=== PATIENT | female | born 1940 | race Caucasian/White ===

== ENCOUNTER 2020-03-02 17:44 | Inpatient (IN) | payer OTHER ==
[2020-03-02] MEDS ORDERED: NA CHLORIDE 0.9% 1,000 ML ONE ×2 (18:45→23:33)
[2020-03-02 18:48] LABS: Absolute Lymphocytes (CBC) 55.3 K/uL (0.7-4.9); Hematocrit 34.7 % (36.0-45.0); Lymphocytes % 89.1 % (15.3-44.8); MPV 7.2 fL (7.6-11.3); RBC Red Blood Cell Count 3.67 M/uL (3.86-4.86)
[2020-03-02 19:01] LABS: Potassium 3.9 mmol/L (3.5-5.1)
[2020-03-02 19:37] LABS: Blood Morphology Comment NOT SEEN (NOT SEEN); Platelet Estimate ADEQ
--- NOTE | 2020-03-02 20:19 | RAD REPORT ---
EXAM DESCRIPTION: RAD - Chest Single View - 03/02/2020 7:59 pm CLINICAL HISTORY: leukocytosis COMPARISON: None TECHNIQUE: AP portable chest image was obtained 03/02/2020 7:59 pm . FINDINGS: No focal mass or consolidation identified. Interstitial pattern is prominent which is most likely chronic fibrotic change. This could mask minimal infiltrates. Failure and volume overload are not suspected. No hilar mass or lymphadenopathy. Heart and vasculature are normal. No measurable ple ural effusion and no pneumothorax. No acute bony abnormality seen. No acute aortic findings suspected . IMPRESSION: Prominent interstitial pattern believed to be chronic fibrotic change.
--- NOTE | 2020-03-02 21:15 | P.HP ---
Certification for Inpatient Patient admitted to: Inpatient With expected LOS: >2 Midnights Patient will require the following post-hospital care: None Practitioner: I am a practitioner with admitting privileges, knowledge of patient current condition, hospital course, and medical plan of care. Services: Services provided to patient in accordance with Admission requirements found in Title 42 Section 412.3 of the Code of Federal Regulations <OzEthan - Last Filed: 03/02/20 21:07> Patient History Date of Service: 03/02/20 Primary Care Provider: Dr. Mckay, oncology Dr. Cutler, nephrology- Dr. Larson Reason for admission: Hyponatremia History of Present Illness: 79-year-old female with history of CLL presents emergency department for hypernatremia. Patient had outpatient labs performed with her oncologist today that revealed a sodium of 116 and she is referred to the emergency department for further evaluation and management. Patient had labs repeated in the ED, this revealed sodium 116, potassium 3.9, chloride 79 %period% creatinine 1.98, GFR 24, BUN 29 which is not significantly different from her baseline. Patient also noted to have elevated white blood cell count 62.0 with 89.1% lymphocytes. Hemoglobin 11.6, hematocrit 34.7. Patient is not receiving any treatment currently for her CLL, patient is without any lymphadenopathy or significant anemia/thrombocytopenia. Case was discussed with nephrology while patient was in the emergency department, recommended normal saline 250 cc an hr with BMP every 4 hr. Case was discussed with hospitalist attending electronic console display operator. Patient with some mild altered mental status, oriented x2 to person and place but mainly the year as 2009. - Past Medical/Surgical History -: CLL -: Tubal ligation -: Tonsillectomy Psychosocial/ Personal History: Patient lives at home with her son - Social History Smoking Status: Former smoker Alcohol use: No CD- Drugs: No Caffeine use: Yes Place of Residence: Home <Ethan Clinton - Last Filed: 03/02/20 21:07> Date of Service: 03/03/20 <rowena abdi - Last Filed: 03/03/20 11:38> Review of Systems Unremarkable <Ethan Clinton - Last Filed: 03/02/20 21:07> Physical Examination - Physical Exam General: Alert, In no apparent distress, Oriented x2 HEENT: Atraumatic, Normocephalic, Other (Mucous membranes dry) Neck: Supple Respiratory: Clear to auscultation bilaterally, Normal air movement Cardiovascular: No edema, Normal S1 S2 Capillary refill: <2 Seconds Gastrointestinal: Normal bowel sounds, No tenderness Musculoskeletal: No contractures, No erythema, No tenderness Integumentary: No tenderness/swelling, No erythema Neurological: Normal speech, Normal strength at 5/5 x4 extr, Normal tone, Sensation intact - Studies Laboratory Data (last 24 hrs) 03/02/20 18:25: Sodium 116 L*, Potassium 3.9, BUN 29 H, Creatinine 1.98 H, Glucose 139 H 03/02/20 18:25: WBC 62.0 H*, Hgb 11.6 L, Hct 34.7 L, Plt Count 198 <Ethan Clinton - Last Filed: 03/02/20 21:07> - Studies Laboratory Data (last 24 hrs) 03/02/20 18:25: Sodium 116 L*, Potassium 3.9, BUN 29 H, Creatinine 1.98 H, Glucose 139 H 03/02/20 18:25: WBC 62.0 H*, Hgb 11.6 L, Hct 34.7 L, Plt Count 198 <rowena abdi - Last Filed: 03/03/20 11:38> Assessment and Plan - Plan Assessment Severe hypovolemic hyponatremia CKD 4 CLL Plan Severe hypovolemic hyponatremia: Suspect hypovolemic hyponatremia, patient is on diuretic therapy and has poor p.o. intake. Case discussed with nephrology recommended normal saline at 250 cc/hour with q4h BMP. Case was discussed with hospitalist attending on-call. Monitor on telemetry. Plan of care discussed with son and patient, patient currently oriented x2 suggesting years 2009. Son states that he takes care of his mother at home but it is a lot for him as he is a personal fitness manager job as well. Consult placed for social group worker and physical therapy as patient has had multiple falls recently as well. Code status discussed with patient and son, patient prefers DNR. Son states that they were supposed to go to air deodorizer servicer tomorrow and have paper signed but he is agreeable with plan of care. CKD 4: Renal function appears to be close to baseline. Continue with nephrology recommendations including normal saline. CLL: 60,000 white count at this time. 90% lymphocytes. No signs of infection. Continue to monitor CBC and monitor for signs of infection. Discharge Plan: Home Plan to discharge in: 72 Hours - Advance Directives Does patient have a Living Will: No Does patient have a Durable POA for Healthcare: No - Code Status/Comfort Care Code Status Assessed: Yes (DNR) Critical Care: No Time Spent Managing Pts Care (In Minutes): 55 <Ethan Clinton - Last Filed: 03/02/20 21:07> Physician Review: Patient Assessed, Agree with Above Assessment and Plan Physician Review Additional Text: Hyponatremia-likely secondary to dehydration. CLL-asymptomatic. Plan: IV normal saline per nephrology recommendation Monitor BMP q.4 hr. Sodium level correction not to exceed 10 meq per day. <rowena abdi - Last Filed: 03/03/20 11:38>
[2020-03-02] MEDS ORDERED: ONDANSETRON 4 MG/2 ML VIAL IV PRN (22:40)
[2020-03-02] MEDS: NA CHLORIDE 0.9% 1,000 ML IV SCH (22:40)
[2020-03-02 23:00] LABS: Potassium 3.9 mmol/L (3.5-5.1)
[2020-03-02 23:37] LABS: Urine Bacteria LOADED /HPF (<20)
[2020-03-02 23:43] LABS: Urine RBC 20-50 /HPF (NONE SEEN)
[2020-03-03 00:56] VITALS: BMI 15.7
[2020-03-03] MEDS: MELATONIN 5 MG TABLET PO PRN (01:21)
[2020-03-03 03:54] LABS: Potassium 3.5 mmol/L (3.5-5.1)
[2020-03-03] MEDS ORDERED: CEFTRIAXONE 1 GM/NS 50 ML 1 GM/50 ML BAG IV SCH (03:55)
[2020-03-03 04:05] LABS: Absolute Lymphocytes (CBC) 42.1 K/uL (0.7-4.9); Hematocrit 29.9 % (36.0-45.0); Lymphocytes % 89.1 % (15.3-44.8); MPV 7.6 fL (7.6-11.3); RBC Red Blood Cell Count 3.17 M/uL (3.86-4.86)
[2020-03-03] MEDS ORDERED: POTASSIUM CL SA 10 MEQ TAB PO ONE (09:00)
[2020-03-03] MEDS: ENOXAPARIN 30 MG/0.3 ML SQ SCH (09:50)
[2020-03-03] MEDS: CEFTRIAXONE/SWI 1gm 1 GM/10 ML SYR IV SCH (09:50)
[2020-03-03 10:20] LABS: Urine Appearance CLOUDY; Urine Bilirubin NEGATIVE (NEG); Urine Blood 2+ (NEG); Urine Color YELLOW; Urine Glucose NEGATIVE (NEG); Urine Protein NEGATIVE (NEG)
[2020-03-03 11:11] LABS: Urine Microscopic Reflex ORDER UMIC
[2020-03-03 11:12] LABS: Urine Bacteria LOADED /HPF (<20)
--- NOTE | 2020-03-03 11:42 | P.PN ---
Subjective Date of Service: 03/03/20 Primary Care Provider: Dr. Mckay, oncology Dr. Cutler, nephrology- Dr. Larson Chief Complaint: Hyponatremia She has no complain. Family reports poor oral intake. Family also reports patient aspirate during meals. Physical Examination - Vital Signs Temperature: 98.1 F Blood Pressure: 115/56 Pulse: 67 Respirations: 16 Pulse Ox (%): 98 - Physical Exam General: In no apparent distress, Oriented x3, Cachectic HEENT: Mucous membr. moist/pink Neck: Supple, JVD not distended Respiratory: Clear to auscultation bilaterally, Normal air movement Cardiovascular: No edema, Regular rate/rhythm, Normal S1 S2 Gastrointestinal: Normal bowel sounds, Soft and benign, No tenderness Musculoskeletal: No swelling, No tenderness Integumentary: No rashes, No erythema Neurological: Normal speech, Normal strength at 5/5 x4 extr, Cranial nerves 3-12 intact - Studies Laboratory Data (last 24 hrs) 03/02/20 18:25: Sodium 116 L*, Potassium 3.9, BUN 29 H, Creatinine 1.98 H, Glucose 139 H 03/02/20 18:25: WBC 62.0 H*, Hgb 11.6 L, Hct 34.7 L, Plt Count 198 Assessment And Plan - Current Problems (Diagnosis) (1) Hyponatremia Current Visit: Yes Status: Acute (2) CLL (chronic lymphocytic leukemia) Current Visit: Yes Status: Acute (3) Oropharyngeal dysphagia Current Visit: Yes Status: Acute (4) Cachexia Current Visit: Yes Status: Acute (5) Anemia Current Visit: Yes Status: Acute (6) Thrombocytopenia Current Visit: Yes Status: Acute - Plan Continue IV normal saline at the current rate. Continue to monitor BMP q.6 hrs. Nephrology to follow. Speech therapy swallow evaluation. Frequent high-calorie diet recommended. Follow up with hematology as outpatient for CLL.
[2020-03-03 12:27] LABS: Potassium 4.1 mmol/L (3.5-5.1)
[2020-03-03] MEDS: NA CHLORIDE 0.9% 1,000 ML IV SCH ×2 (16:56→16:57)
[2020-03-03 18:59] LABS: Potassium 4.1 mmol/L (3.5-5.1)
--- NOTE | 2020-03-03 20:58 | P.CNS ---
Date of Consult: 03/03/20 Reason for Consult: EUGENIO/ Hyponatremia Requesting Physician: rowena abdi Primary Care Provider: Dr. Mckay, oncology Dr. Cutler, nephrology- Dr. Larson Chief Complaint: Hyponatremia History of Present Illness: 79 yo WF CLL presented to the ER from oncology with severe, persistent hyponatremia in the setting of HCTZ. The patient is not a good historian. 79-year-old female with history of CLL presents emergency department for hypernatremia. Patient had outpatient labs performed with her oncologist today that revealed a sodium of 116 and she is referred to the emergency department for further evaluation and management. Patient had labs repeated in the ED, this revealed sodium 116, potassium 3.9, chloride 79 %period% creatinine 1.98, GFR 24, BUN 29 which is not significantly different from her baseline. Patient also noted to have elevated white blood cell count 62.0 with 89.1% lymphocytes. Hemoglobin 11.6, hematocrit 34.7. Patient is not receiving any treatment currently for her CLL, patient is without any lymphadenopathy or significant anemia/thrombocytopenia. Case was discussed with nephrology while patient was in the emergency department, recommended normal saline 50 cc an hr with BMP every 4 hr. Case was discussed with hospitalist attending investment consultant. Patient with some mild altered mental status, oriented x2 to person and place but mainly the year as 2009. Allergies No Known Allergies Allergy (Unverified 03/02/20 22:40) Home medications list reviewed: Yes Home Medications: Triamterene/Hydrochlorothiazid [Triamterene-Hctz 37.5-25 mg Cp] 1 cap PO DAILY 03/03/20 - Past Medical/Surgical History -: CLL -: Tubal ligation -: Tonsillectomy Psychosocial/ Personal History: Patient lives at home with her son - Social History Alcohol use: No CD- Drugs: No Caffeine use: Yes Place of Residence: Home Review of Systems 10-point ROS is otherwise unremarkable General: Weakness, Malaise Physical Examination Temp Pulse Resp BP Pulse Ox 98.3 F 72 16 117/61 98 03/03/20 16:00 03/03/20 16:00 03/03/20 16:00 03/03/20 16:00 03/03/20 16:00 General: In no apparent distress, Cooperative HEENT: Atraumatic Neck: Supple Respiratory: Clear to auscultation bilaterally Cardiovascular: No edema, Regular rate/rhythm Gastrointestinal: Soft and benign, Non-distended Musculoskeletal: No clubbing, No contractures Integumentary: No rashes, No cyanosis Neurological: Normal speech Blood work reviewed in the chart. Imagings Data: EXAM DESCRIPTION: RAD - Chest Single View - 03/02/2020 7:59 pm CLINICAL HISTORY: leukocytosis COMPARISON: None TECHNIQUE: AP portable chest image was obtained 03/02/2020 7:59 pm . FINDINGS: No focal mass or consolidation identified. Interstitial pattern is prominent which is most likely chronic fibrotic change. This could mask minimal infiltrates. Failure and volume overload are not suspected. No hilar mass or lymphadenopathy. Heart and vasculature are normal. No measurable pleural e ffusion and no pneumothorax. No acute bony abnormality seen. No acute aortic findings suspected. IMPRESSION: Prominent interstitial pattern believed to be chronic fibrotic change. Conclusions/Impression: A/ EUGENIO due to hypovolemia Hyponatremia in the setting of HCTZ Hypokalemia Hypocalcemia CKD III Anemia in the setting of CLL Acute cystitis Dysphagia and Cachexia P/ Continue current POC and Medications. Gentle IVF. Replete potassium prn. Start Vitamin D. Continue abx. Follow up culture. No NSAIDs. AM labs. Daily weight. Thank you kindly for the consultation.
[2020-03-03] MEDS: DOCUSATE NA 100 MG CAP PO SCH (21:52)
[2020-03-03] MEDS: ENSURE ENLIVE 237 ML CAN PO SCH (21:53)
[2020-03-04 06:45] LABS: Magnesium 1.7 mg/dL (1.8-2.4); Phosphorus 2.4 mg/dL (2.5-4.9); Potassium 4.3 mmol/L (3.5-5.1); Uric Acid 4.7 mg/dL (2.6-6.0)
[2020-03-04 08:27] LABS: Absolute Lymphocytes (CBC) 37.8 K/uL (0.7-4.9); Basophils % 0.1 % (0-1.3); Hematocrit 31.8 % (36.0-45.0); Lymphocytes % 87.4 % (15.3-44.8); MPV 7.3 fL (7.6-11.3); RBC Red Blood Cell Count 3.35 M/uL (3.86-4.86)
[2020-03-04] MEDS: ENOXAPARIN 30 MG/0.3 ML SQ SCH (09:55)
[2020-03-04] MEDS: DOCUSATE NA 100 MG CAP PO SCH ×2 (09:55→20:15)
[2020-03-04] MEDS: VITAMIN D 5,000 UNIT CAP PO SCH (09:55)
[2020-03-04] MEDS: CEFTRIAXONE/SWI 1gm 1 GM/10 ML SYR IV SCH (09:55)
[2020-03-04] MEDS: ENSURE ENLIVE 237 ML CAN PO SCH ×3 (09:56→20:25)
[2020-03-04 12:15] LABS: Potassium 4.1 mmol/L (3.5-5.1)
--- NOTE | 2020-03-04 12:18 | P.PN ---
Subjective Date of Service: 03/04/20 Primary Care Provider: Dr. Mckay, oncology Dr. Cutler, nephrology- Dr. Larson Chief Complaint: Hyponatremia She has no new complaint Sodium level has improved. Physical Examination - Vital Signs Temperature: 98.9 F Blood Pressure: 114/55 Pulse: 82 Respirations: 18 Pulse Ox (%): 98 - Physical Exam General: Alert, In no apparent distress Neck: Supple Respiratory: Clear to auscultation bilaterally, Normal air movement Cardiovascular: No edema, Regular rate/rhythm, Normal S1 S2 Gastrointestinal: Normal bowel sounds, Soft and benign, Non-distended, No tenderness Musculoskeletal: No swelling, No tenderness Integumentary: No rashes, No erythema Neurological: Normal speech, Other (Nonfocal) Assessment And Plan - Current Problems (Diagnosis) (1) Hyponatremia Current Visit: Yes Status: Acute (2) CLL (chronic lymphocytic leukemia) Current Visit: Yes Status: Acute (3) Oropharyngeal dysphagia Current Visit: Yes Status: Acute (4) Cachexia Current Visit: Yes Status: Acute (5) Anemia Current Visit: Yes Status: Acute (6) Thrombocytopenia Current Visit: Yes Status: Acute - Plan Continue IV normal saline and titrate hydrate to treat hyponatremia. Nephrology is following Continue to monitor BMP q.6 hrs. Speech therapy swallow evaluation is pending Frequent high-calorie diet recommended. Follow up with hematology as outpatient for CLL. PT recommending skilled rehab. Social service is assisting with disposition to SNF.
[2020-03-04] MEDS: NA CHLORIDE 0.9% 1,000 ML IV SCH (14:40)
[2020-03-04] MEDS: ACETAMINOPHEN 500 MG TAB PO PRN ×2 (15:40→20:15)
[2020-03-04 18:35] LABS: Potassium 4.4 mmol/L (3.5-5.1)
[2020-03-04] MEDS: MELATONIN 5 MG TABLET PO PRN (20:16)
--- NOTE | 2020-03-04 21:12 | P.PN ---
Date of Service: 03/04/20 Vital Signs Temp Pulse Resp BP Pulse Ox 98.3 F 86 18 131/60 98 03/04/20 16:00 03/04/20 16:00 03/04/20 16:00 03/04/20 16:00 03/04/20 16:00 Medications Acetaminophen (Tylenol -Extra Strength) 500 mg PO Q4HP PRN PRN Reason: TEMP > 100' F Stop: 04/01/20 22:41 Last Admin: 03/04/20 20:15 Dose: 500 mg Documented by: Cholecalciferol (Vitamin D 5,000 Iu Cap) 5,000 unit PO DAILY GREGORIO Stop: 04/03/20 09:01 Last Admin: 03/04/20 09:55 Dose: 5,000 unit Documented by: Docusate Sodium (Colace Cap) 100 mg PO BID GREGORIO Stop: 04/02/20 21:16 Last Admin: 03/04/20 20:15 Dose: 100 mg Documented by: Enoxaparin Sodium (Lovenox 30 Mg Inj) 30 mg SQ DAILY GREGORIO Stop: 04/02/20 09:01 Last Admin: 03/04/20 09:55 Dose: 30 mg Documented by: Sodium Chloride (Ns 1000 Ml Ivbag) 1,000 mls @ 50 mls/hr IV .Q20H [facility] Stop: 04/01/20 22:41 Last Admin: 03/04/20 14:40 Dose: Not Given Documented by: Ceftriaxone Sodium/Sodium Chloride (Rocephin 1 Gm/10 Ml Swi Ivp) 1 gm in 10 mls @ 600 mls/hr IV DAILY GREGORIO Stop: 04/02/20 09:01 Last Admin: 03/04/20 09:55 Dose: 10 mls Documented by: Melatonin (Melatonin) 5 mg PO BEDTIME PRN PRN PRN Reason: INSOMNIA Stop: 04/01/20 22:41 Last Admin: 03/04/20 20:16 Dose: 5 mg Documented by: Multivitamins/Minerals (Centrum Tablet) 1 tab PO DAILY [facility] Stop: 04/04/20 09:01 Nutritional Formula (Ensure Enlive) 237 ml PO TID GREGORIO Stop: 04/02/20 21:01 Last Admin: 03/04/20 20:25 Dose: 237 ml Documented by: Ondansetron HCl (Zofran) 4 mg IV Q6HP PRN PRN Reason: NAUSEA / VOMITING Stop: 04/01/20 22:41 Sodium Chloride (Normal Saline Flush) 10 ml IV BID GREGORIO Stop: 04/01/20 22:41 Last Admin: 03/04/20 20:16 Dose: Not Given Documented by: Assessment/ Plan: Nephrology CPS stable without CP or SOB. No acute events overnight. +Appetite Vitals, medications, blood work and imaging reviewed in the chart. General: In no apparent distress, Cooperative HEENT: Atraumatic Neck: Supple Respiratory: Clear to auscultation bilaterally Cardiovascular: No edema, Regular rate/rhythm Gastrointestinal: Soft and benign, Non-distended Musculoskeletal: No clubbing, No contractures Integumentary: No rashes, No cyanosis Neurological: Normal speech Blood work reviewed in the chart. Imagings Data: EXAM DESCRIPTION: RAD - Chest Single View - 03/02/2020 7:59 pm CLINICAL HISTORY: leukocytosis COMPARISON: None TECHNIQUE: AP portable chest image was obtained 03/02/2020 7:59 pm . FINDINGS: No focal mass or consolidation identified. Interstitial pattern is prominent which is most likely chronic fibrotic change. This could mask minimal infiltrates. Failure and volume overload are not suspected. No hilar mass or lymphadenopathy. Heart and vasculature are normal. No measurable pleural effusion and no pneumothorax. No acute bony abnormality seen. No acute aortic findings suspected. IMPRESSION: Prominent interstitial pattern believed to be chronic fibrotic change. Conclusions/Impression: A/ EUGENIO due to hypovolemia Hyponatremia in the setting of HCTZ Hypokalemia Hypocalcemia HypoPO4 CKD III Anemia in the setting of CLL Acute GNR cystitis Dysphagia and Cachexia P/ Continue current POC and Medications. Gentle IVF. Replete lytes. Start MVI Continue abx. Follow up culture. No NSAIDs. AM labs. Daily weight.
[2020-03-05 02:26] VITALS: O2SAT 95
[2020-03-05] MEDS: NA CHLORIDE 0.9% 1,000 ML IV SCH (05:26)
[2020-03-05 06:03] LABS: Absolute Lymphocytes (CBC) 36.7 K/uL (0.7-4.9); Basophils % 0.1 % (0-1.3); Hematocrit 32.2 % (36.0-45.0); Lymphocytes % 86.8 % (15.3-44.8); RBC Red Blood Cell Count 3.36 M/uL (3.86-4.86)
[2020-03-05 06:20] LABS: Albumin 2.3 g/dL (3.4-5.0); Bilirubin Total 0.4 mg/dL (0.2-1.0); Magnesium 1.7 mg/dL (1.8-2.4); Phosphorus 2.2 mg/dL (2.5-4.9); Potassium 5.1 mmol/L (3.5-5.1); Protein, Total 6.1 g/dL (6.4-8.2); Uric Acid 3.6 mg/dL (2.6-6.0)
[2020-03-05] MEDS: ENSURE ENLIVE 237 ML CAN PO SCH (08:40)
[2020-03-05] MEDS: CEFTRIAXONE/SWI 1gm 1 GM/10 ML SYR IV SCH (08:43)
[2020-03-05] MEDS: DOCUSATE NA 100 MG CAP PO SCH (08:43)
[2020-03-05] MEDS: VITAMIN D 5,000 UNIT CAP PO SCH (08:43)
[2020-03-05] MEDS: ENOXAPARIN 30 MG/0.3 ML SQ SCH (08:44)
[2020-03-05] MEDS ORDERED: AMLODIPINE 5 MG TAB PO SCH (09:00)
[2020-03-05] MEDS ORDERED: MULTIVITAMIN TAB PO SCH (09:00)
[2020-03-05 09:37] LABS: Blood Morphology Comment NOT SEEN (NOT SEEN); Platelet Estimate ADEQ
--- NOTE | 2020-03-05 12:39 | P.PN ---
Subjective Date of Service: 03/05/20 Primary Care Provider: Dr. Mckay, oncology Dr. Cutler, nephrology- Dr. Larson Chief Complaint: Hyponatremia She has no new complaint Patient seen participating in physical therapy. She was walking with a walker. She states she feels better. She stated she finished her breakfast this morning. She has no significant dysphagia. Her sodium level has improved. Physical Examination - Vital Signs Temperature: 98.1 F Blood Pressure: 176/75 Pulse: 79 Respirations: 18 Pulse Ox (%): 97 - Physical Exam General: Alert, Cachectic Respiratory: Clear to auscultation bilaterally, Normal air movement Cardiovascular: No edema, Regular rate/rhythm, Normal S1 S2 Gastrointestinal: Normal bowel sounds, Soft and benign, No tenderness Musculoskeletal: No swelling, No tenderness Integumentary: No rashes, No erythema Neurological: Other (Nonfocal) Assessment And Plan - Current Problems (Diagnosis) (1) Hyponatremia Current Visit: Yes Status: Acute (2) CLL (chronic lymphocytic leukemia) Current Visit: Yes Status: Acute (3) Oropharyngeal dysphagia Current Visit: Yes Status: Acute (4) Cachexia Current Visit: Yes Status: Acute (5) Anemia Current Visit: Yes Status: Acute (6) Thrombocytopenia Current Visit: Yes Status: Acute - Plan Hyponatremia has improved. Sodium level is currently at 130. Nephrology is following Speech therapy: No significant dysphagia Frequent high-calorie diet recommended. Follow up with hematology as outpatient for CLL. PT recommending skilled rehab. Social service is assisting with disposition to SNF.
--- NOTE | 2020-03-05 15:13 | P.DS ---
Admission Date: 03/02/20 Discharge Date: 03/05/20 Primary Care Provider: Dr. Mckay, oncology Dr. Cutler, nephrology- Dr. Larson Disposition: TRANSFER TO [facility] Discharge Condition: FAIR Reason for Admission: Hyponatremia - Problems (1) Hyponatremia Status: Acute (2) CLL (chronic lymphocytic leukemia) Status: Acute (3) Oropharyngeal dysphagia Status: Acute (4) Cachexia Status: Acute (5) Anemia Status: Acute (6) Thrombocytopenia Status: Acute (7) Urinary tract infection Status: Acute Brief History of Present Illness: 79-year-old woman, recently diagnosed with CLL was sent to the emergency department for further treatment for hyponatremia. Patient date BMP at her oncologist's office. She was found to have sodium of 116 and therefore patient was referred to the emergency department. She is currently not receiving treatment for the CLL. Her white cell count in the emergency department was 62,000 with predominant lymphocytes. Home Health Attendant Dr. Seay was contacted who recommended IV normal saline infusion to treat hyponatremia. Patient was hospitalized for further management. Hospital Course: Patient admitted to the medical floor and treated for the hyponatremia with IV normal saline. BMP was monitored closely. Sodium level gradually improved and now up to 130. Patient was seen and evaluated by nephrology Dr. Larson. Family reports patient has poor oral intake. She was seen by speech therapy we evaluated her swallow and reported no significant dysphagia. Patient tolerated feeding with no aspiration. She was also seen by physical therapy. She was needing assistance with ambulation. Skilled rehab was recommended. Her urine culture grew Gram negative rods. Patient received 3 days of IV Rocephin for UTI. Patient has clinically improved, vitals have been stable. She is deemed clinically stable for transfer to SNF for rehab. Vital Signs/Physical Exam: Temp Pulse Resp BP Pulse Ox 98.1 F 79 18 176/75 H 97 03/05/20 12:38 03/05/20 12:38 03/05/20 12:38 03/05/20 12:38 03/05/20 12:38 Laboratory Data at Discharge: WBC 42.2 K/uL (4.3-10.9) H* 03/05/20 05:44 Hgb 10.9 g/dL (12.0-15.0) L 03/05/20 05:44 Hct 32.2 % (36.0-45.0) L 03/05/20 05:44 Plt Count 135 K/uL (152-406) L 03/05/20 05:44 Sodium 130 mmol/L (136-145) L 03/05/20 05:44 Potassium 5.1 mmol/L (3.5-5.1) 03/05/20 05:44 BUN 27 mg/dL (7-18) H 03/05/20 05:44 Creatinine 1.00 mg/dL (0.55-1.3) 03/05/20 05:44 Glucose 84 mg/dL (74-106) 03/05/20 05:44 Uric Acid 3.6 mg/dL (2.6-6.0) 03/05/20 05:44 Phosphorus 2.2 mg/dL (2.5-4.9) L 03/05/20 05:44 Magnesium 1.7 mg/dL (1.8-2.4) L 03/05/20 05:44 Total Bilirubin 0.4 mg/dL (0.2-1.0) 03/05/20 05:44 AST 68 U/L (15-37) H 03/05/20 05:44 ALT 42 U/L (12-78) 03/05/20 05:44 Alkaline Phosphatase 154 U/L (45-117) H 03/05/20 05:44 Home Medications: Amlodipine [Norvasc*] 5 mg PO DAILY #0 tab 03/05/20 Cholecalciferol (Vitamin D3) [Vitamin D 5,000 IU Cap*] 5,000 unit PO DAILY cap 03/05/20 Docusate [Colace Cap*] 100 mg PO BID cap 03/05/20 Ensure Enlive 237 ml PO TID can 03/05/20 Melatonin 5 mg PO BEDTIME PRN PRN tablet 03/05/20 Multivit,Ther Iron,Ca,FA & Min [Centrum Tablet*] 1 tab PO DAILY tab 03/05/20 Diet: Regular Activity: Fall precautions Followup: Nicholas Mckay MD [Primary Care Provider] - (within 2 weeks.) Time spent managing pt's care (in minutes): 40
[2020-03-05 18:40] VITALS: BP 122/60; TEMP 98
--- NOTE | 2020-03-05 21:56 | P.PN ---
Date of Service: 03/05/20 Vital Signs Temp Pulse Resp BP Pulse Ox 98 F 93 H 18 122/60 97 03/05/20 16:00 03/05/20 16:00 03/05/20 16:00 03/05/20 16:00 03/05/20 16:00 Assessment/ Plan: Nephrology CPS stable without CP or SOB. No acute events overnight. Vitals, medications, blood work and imaging reviewed in the chart. General: In no apparent distress, Cooperative HEENT: Atraumatic Neck: Supple Respiratory: Clear to auscultation bilaterally Cardiovascular: No edema, Regular rate/rhythm Gastrointestinal: Soft and benign, Non-distended Musculoskeletal: No clubbing, No contractures Integumentary: No rashes, No cyanosis Neurological: Normal speech Blood work reviewed in the chart. Imagings Data: EXAM DESCRIPTION: RAD - Chest Single View - 03/02/2020 7:59 pm CLINICAL HISTORY: leukocytosis COMPARISON: None TECHNIQUE: AP portable chest image was obtained 03/02/2020 7:59 pm . FINDINGS: No focal mass or consolidation identified. Interstitial pattern is prominent which is most likely chronic fibrotic change. This could mask minimal infiltrates. Failure and volume overload are not suspected. No hilar mass or lymphadenopathy. Heart and vasculature are normal. No measurable pleural effusion and no pneumothorax. No acute bony abnormality seen. No acute aortic findings suspected. IMPRESSION: Prominent interstitial pattern believed to be chronic fibrotic change. Conclusions/Impression: A/ EUGENIO due to hypovolemia Hyponatremia in the setting of HCTZ Hypokalemia Hypocalcemia HypoPO4 CKD III Anemia in the setting of CLL Acute GNR cystitis Dysphagia and Cachexia P/ Continue current POC and Medications. Gentle IVF. Replete lytes prn Continue abx. Follow up culture. Encourage nutrition. No NSAIDs. AM labs. Daily weight.
== END 2020-03-05 17:36 | DRG 641 ==
LOC: ER 17:44 → ERHOLD 20:27 → 2ND 03-03 01:33
PROVIDERS: ADMIT Internal Medicine; ATTEND Internal Medicine
DX: E87.1 Hypo-osmolality and hyponatremia (principal); N18.4 Chronic kidney disease, stage 4 (severe); C91.10 Chronic lymphocytic leukemia of B-cell type not having achieved remission; R64 Cachexia; Z68.1 Body mass index [BMI] 19.9 or less, adult; N17.9 Acute kidney failure, unspecified; N30.00 Acute cystitis without hematuria; E86.1 Hypovolemia; E86.0 Dehydration; D69.6 Thrombocytopenia, unspecified; E87.6 Hypokalemia; E83.51 Hypocalcemia; D63.0 Anemia in neoplastic disease; R13.12 Dysphagia, oropharyngeal phase; Z66 Do not resuscitate; Z98.51 Tubal ligation status; Z91.81 History of falling; Z79.899 Other long term (current) drug therapy; Z87.891 Personal history of nicotine dependence; Z20.828 Contact with and (suspected) exposure to other viral communicable diseases
CPT/HCPCS: 36415; 71045; 80048; 80053; 81003; 81015; 82533; 83615; 83735; 83930; 83935; 84100; 84300; 84550; 85025; 87077; 87086; 87088; 87186; 92610; 93005; 97116; 97161; 97530; 99211; J0696; J1650; J7030; U0003

== ENCOUNTER 2020-09-16 06:35 | Inpatient (IN) | payer OTHER ==
[2020-09-16 08:35] LABS: Absolute Lymphocytes (CBC) 19.1 K/uL (0.7-4.9); Basophils % 0.2 % (0-1.3); Hematocrit 36.6 % (36.0-45.0); MPV 7.5 fL (7.6-11.3)
[2020-09-16 08:39] LABS: Urine Blood Negative (Negative); Urine Glucose Negative (Negative); Urine Protein 1+ (Negative)
[2020-09-16 08:47] LABS: Potassium 3.6 mmol/L (3.5-5.1)
[2020-09-16 09:27] LABS: Blood Morphology Comment NOT SEEN (NOT SEEN); Platelet Estimate ADEQ
[2020-09-16 09:27] LABS: Urine Bacteria <20 /HPF (<20); Urine RBC <5 /HPF (NONE SEEN)
[2020-09-16] MEDS ORDERED: CEFTRIAXONE/SWI 1gm 1 GM/10 ML SYR ONE (09:44)
--- NOTE | 2020-09-16 10:56 | RAD REPORT ---
EXAM DESCRIPTION: US - Extrem Venous W Compress Christian - 09/16/2020 10:31 am CLINICAL HISTORY: Pain;Swelling COMPARISON: None. TECHNIQUE: Real-time sonographic evaluation of the bilateral lower extremity common femoral, superfi cial femoral, popliteal and posterior tibial veins was performed. FINDINGS: Normal compressibility, flow augmentation, phasic flow and spontaneous flow are identified in the left and right lower extremity common femoral, superficial femoral, popliteal and posterior t ibial veins. No intraluminal filling defects seen. IMPRESSION: No DVT in either lower extremity.
--- NOTE | 2020-09-16 11:55 | RAD REPORT ---
EXAM DESCRIPTION: RAD - Chest Single View - 09/16/2020 11:20 am CLINICAL HISTORY: COUGH COMPARISON: Portable March 2020 TECHNIQUE: AP portable chest image was obtained 09/16/2020 11:20 am . FINDINGS: Baseline fibrotic lung changes are present. Patient is substantially rotated for this exam ination distorting the mediastinum. No peripheral mass or consolidation. No significant failure or vo lume overload seen. Heart and vasculature are normal. No measurable pleural effusion and no pneumotho rax. No acute bony abnormality seen. No acute aortic findings suspected. IMPRESSION: Limited portable study showing baseline fibrotic lung change but no acute cardiopulmonar y finding.
[2020-09-16 12:42] LABS: Urine Blood Trace-intact (Negative); Urine Glucose Negative (Negative); Urine Protein 1+ (Negative); Urine Specific Gravity 1.025 (1.005-1.030); Urine pH 6.5 (5.0-7.0)
[2020-09-16 13:20] LABS: Urine Bacteria <20 /HPF (<20)
--- NOTE | 2020-09-16 16:25 | EDPHYS ---
Physician Documentation [facility] Name: Tereza Antonio Age: 79 yrs Sex: Female : 1940 Arrival Date: 09/16/2020 Time: 06:38 Bed 19 Private MD: ED Physician Thomas Gonzáles HPI: 09/16 11:11 This 79 yrs old Female presents to ER via Wheelchair with complaints of Fall kdr Injury, Head Injury-Adult, Decreased Appetite. 11:11 Details of fall: The patient fell from an upright position, while walking. Onset: The kdr symptoms/episode began/occurred gradually, 5 day(s) ago. Associated injuries: The patient sustained Left wrist and hip. Severity of symptoms: At their worst the symptoms were mild, in the emergency department the symptoms are unchanged. The patient has had a poor appetite for the last few days and has been falling more often. While she has hit her head, she denies LOC. She has had chronic left hip/thigh pain from a prior fracture and surgery. The wrist pain is new but not significant. Historical: - Allergies: 08:00 No Known Allergies; iw ROS: 11:11 Constitutional: Negative for fever, chills, and weight loss, Eyes: Negative for injury, kdr pain, redness, and discharge, ENT: Negative for injury, pain, and discharge, Neck: Negative for injury, pain, and swelling, Cardiovascular: Negative for chest pain, palpitations, and edema, Respiratory: Negative for shortness of breath, cough, wheezing, and pleuritic chest pain, Abdomen/GI: Negative for abdominal pain, nausea, vomiting, diarrhea, and constipation, Back: Negative for injury and pain, : Negative for injury, bleeding, discharge, and swelling, MS/Extremity: Negative for injury and deformity, Skin: Negative for injury, rash, and discoloration, Neuro: Negative for headache, weakness, numbness, tingling, and seizure activity. Psych: Negative for depression, anxiety, suicide ideation, homicidal ideation, and hallucinations, Allergy/Immunology: Negative for hives, rash, and allergies, Endocrine: Negative for neck swelling, polydipsia, polyuria, polyphagia, and marked weight changes, Hematologic/Lymphatic: Negative for swollen nodes, abnormal bleeding, and unusual bruising. Exam: 11:11 Constitutional: This is a well developed, well nourished patient who is awake, alert, kdr and in no acute distress. Head/Face: Normocephalic, atraumatic. Eyes: Pupils equal round and reactive to light, extra-ocular motions intact. Lids and lashes normal. Conjunctiva and sclera are non-icteric and not injected. Cornea within normal limits. Periorbital areas with no swelling, redness, or edema. Neck: Trachea midline, no thyromegaly or masses palpated, and no cervical lymphadenopathy. Supple, full range of motion without nuchal rigidity, or vertebral point tenderness. No Meningismus. Chest/axilla: Normal chest wall appearance and motion. Nontender with no deformity. No lesions are appreciated. Cardiovascular: Regular rate and rhythm with a normal S1 and S2. No gallops, murmurs, or rubs. Normal PMI, no JVD. No pulse deficits. Respiratory: Lungs have equal breath sounds bilaterally, clear to auscultation and percussion. No rales, rhonchi or wheezes noted. No increased work of breathing, no retractions or nasal flaring. Abdomen/GI: Soft, non-tender, with normal bowel sounds. No distension or tympany. No guarding or rebound. No evidence of tenderness throughout. Back: No spinal tenderness. No costovertebral tenderness. Full range of motion. Skin: Warm, dry with normal turgor. Normal color with no rashes, no lesions, and no evidence of cellulitis. Psych: Awake, alert, with orientation to person, place and time. Behavior, mood, and affect are within normal limits. 11:11 Musculoskeletal/extremity: Extremities: grossly normal except: Diffuse/non-focal left wrist pain, Left hip/thigh pain - chronic. Vital Signs: 07:52 BP 150 / 86; Pulse 87; Resp 16; Temp 98.9; Pulse Ox 95% on R/A; iw 08:30 BP 152 / 77; Pulse 87; Resp 18; Pulse Ox 98% ; Pain 4/10; rb3 09:30 rb3 10:18 rb3 11:15 BP 133 / 59; Pulse 82; Resp 17; Pulse Ox 99% ; rb3 12:13 BP 140 / 80; Pulse 76; Resp 16; Pulse Ox 99% ; rb3 14:00 BP 167 / 75; Pulse 74; Resp 17; Pulse Ox 100% ; rb3 16:00 BP 177 / 70; Pulse 75; Resp 17; Pulse Ox 98% ; rb3 17:00 BP 164 / 87; Pulse 95; Resp 16; Pulse Ox 97% ; rb3 18:00 BP 140 / 55; Pulse 79; Resp 17; Pulse Ox 98% ; rb3 19:17 BP 130 / 57; Pulse 82; Resp 16; Pulse Ox 99% on R/A; ad5 09:30 Pt. in US rb3 10:18 Pt. in US rb3 MDM: 11:11 Data reviewed: vital signs, nurses notes, lab test result(s), radiologic studies. kdr Counseling: I had a detailed discussion with the patient and/or guardian regarding: the historical points, exam findings, and any diagnostic results supporting the discharge/admit diagnosis, lab results, radiology results. 16:25 Patient medically screened. [facility] 09/16 08:03 Order name: CBC with Diff; Complete Time: 10:11 kdr 09/16 08:03 Order name: Chem 7; Complete Time: 09:26 kdr 09/16 08:38 Order name: Manual Differential; Complete Time: 10:11 EDMS 09/16 08:39 Order name: Urine Dipstick-Ancillary; Complete Time: 09:26 EDMS 09/16 08:40 Order name: Urine Culture rb3 09/16 08:40 Order name: Urine Microscopic Only; Complete Time: 09:28 rb3 09/16 09:27 Order name: Lactate; Complete Time: 11:19 kdr 09/16 09:27 Order name: Procalcitonin; Complete Time: 11:52 kdr 09/16 12:42 Order name: Urine Dipstick-Ancillary; Complete Time: 16:00 EDMS 09/16 12:51 Order name: Urine Culture rb3 09/16 12:51 Order name: Urine Microscopic Only; Complete Time: 16:00 rb3 09/16 16:36 Order name: Comprehensive Metabolic Panel EDMS 09/16 16:36 Order name: Comprehensive Metabolic Panel EDMS 09/16 16:36 Order name: Troponin I EDMS 09/16 16:36 Order name: Troponin I EDMS 09/16 16:36 Order name: CBC with Automated Diff EDMS 09/16 16:36 Order name: CBC with Automated Diff EDMS 09/16 16:36 Order name: Sedimentation Rate, Westergren EDMS 09/16 16:36 Order name: Sedimentation Rate, Westergren EDND 09/16 16:36 Order name: Troponin I EDND 09/16 16:36 Order name: Troponin I EDND 09/16 16:37 Order name: Folic Acid, (Folate) EDND 09/16 16:37 Order name: Iron EDND 09/16 16:37 Order name: T4 Free EDND 09/16 16:37 Order name: Thyroid Stimulating Hormone EDND 09/16 16:37 Order name: Vitamin B12 Level EDND 09/16 16:37 Order name: Cortisol EDND 09/16 16:37 Order name: Cortisol EDND 09/16 17:15 Order name: Lactate Sepsis 2 HR Follow-up EDND 09/16 17:15 Order name: COVID-19 : Document "Date of Symptom Onset" if Symptomatic. iw 09/16 08:03 Order name: Urine Dipstick-Ancillary (obtain specimen); Complete Time: 08:39 kdr 09/16 08:34 Order name: US Extremity Venous W Compression Christian; Complete Time: 11:00 kdr 09/16 09:27 Order name: CXR XRAY; Complete Time: 16:00 [facility] 09/16 12:11 Order name: Straight Cath - Urine; Complete Time: 12:51 rb3 09/16 16:36 Order name: Regular [facility] 09/16 19:44 Order name: CORONAVIRUS [facility] 09/16 20:45 Order name: SARS-COV-2 RT PCR EDMS Administered Medications: 09:25 Drug: Rocephin - (cefTRIAXone) 1 grams Route: IVPB; Infused Over: 30 mins; Site: right rb3 antecubital; 09:40 Follow up: Response: No adverse reaction; IV Status: Completed infusion rb3 Disposition: 09/16/20 16:25 Hospitalization ordered by Gt Watson for Observation. Preliminary diagnosis are Weakness, Other slipping, tripping and stumbling and falls, Dehydration. - Bed requested for Telemetry/MedSurg (observation). - Status is Observation. ad5 - Condition is Fair. - Problem is an acute exacerbation. - Symptoms have improved. Signatures: Dispatcher [employer] EDND Fabby Smiley RN RN mw Woody, Diana, RN RN dw Rittger, Kevin, MD MD [facility] Anamaria Mcdaniel RN RN iw Anna Simmons, RN RN rb3 Sid Duarte ad5 Corrections: (The following items were deleted from the chart) 17:27 16:25 Hospitalization Ordered by Gt Watson MD for Observation. Preliminary dw diagnosis is Weakness; Other slipping, tripping and stumbling and falls; Dehydration. Bed requested for Telemetry/MedSurg (observation). Status is Observation. Condition is Fair. Problem is an acute exacerbation. Symptoms have improved. kdr 19:17 17:27 09/16/2020 16:25 Hospitalization Ordered by Gt Watson MD for Observation. dw Preliminary diagnosis is Weakness; Other slipping, tripping and stumbling and falls; Dehydration. Bed requested for Telemetry/MedSurg (observation). Status is Observation. Condition is Fair. Problem is an acute exacerbation. Symptoms have improved. dw 20:46 19:17 09/16/2020 16:25 Hospitalization Ordered by Gt Watson MD for Observation. mw Preliminary diagnosis is Weakness; Other slipping, tripping and stumbling and falls; Dehydration. Bed requested for Telemetry/MedSurg (observation). Status is Observation. Condition is Fair. Problem is an acute exacerbation. Symptoms have improved. dw 21:06 20:46 09/16/2020 16:25 Hospitalization Ordered by Gt Watson MD for Observation. ad5 Preliminary diagnosis is Weakness; Other slipping, tripping and stumbling and falls; Dehydration. Bed requested for Telemetry/MedSurg (observation). Status is Observation. Condition is Fair. Problem is an acute exacerbation. Symptoms have improved. mw
--- NOTE | 2020-09-16 16:25 | ER ---
Nurse's Notes [facility] Name: Tereza Antonio Age: 79 yrs Sex: Female : 1940 Arrival Date: 09/16/2020 Time: 06:38 Bed 19 Private MD: Diagnosis: Weakness;Other slipping, tripping and stumbling and falls;Dehydration Presentation: 09/16 07:52 Chief complaint: Patient states: increased weakness over past 4-5 days , not eating iw well (more than usual) and having more frequent falls over past few days, she fell four times this morning, has hx of hyponatremia. Coronavirus screen: At this time, the client does not indicate any symptoms associated with coronavirus-19. Ebola Screen: Patient negative for fever greater than or equal to 101.5 degrees Fahrenheit, and additional compatible Ebola Virus Disease symptoms Patient denies exposure to infectious person. Patient denies travel to an Ebola-affected area in the 21 days before illness onset. No symptoms or risks identified at this time. Initial Sepsis Screen: Does the patient meet any 2 criteria? No. Patient's initial sepsis screen is negative. Does the patient have a suspected source of infection? No. Patient's initial sepsis screen is negative. Risk Assessment: Do you want to hurt yourself or someone else? Patient reports no desire to harm self or others. 07:52 Method Of Arrival: Wheelchair iw 07:52 Acuity: PAN 3 iw Historical: - Allergies: 08:00 No Known Allergies; iw Screenin:40 Abuse screen: Denies threats or abuse. Nutritional screening: No deficits noted. rb3 Tuberculosis screening: No symptoms or risk factors identified. Fall Risk Fall in past 12 months (25 points). Secondary diagnosis (15 points) generalized weakness. IV access (20 points). Ambulatory Aid- None/Bed Rest/Nurse Assist (0 pts). Gait- Weak (10 pts.). Mental Status- Oriented to own ability (0 pts). Assessment: 07:40 General: Appears in no apparent distress. Behavior is calm, cooperative, Family reports rb3 pt is more weak and has been falling frequently.. Neuro: Level of Consciousness is awake, alert, obeys commands, Oriented to person, place, time, situation. Neuro: Reports weakness. Cardiovascular: Patient's skin is warm and dry. Respiratory: Airway is patent Respiratory effort is even, unlabored, Respiratory pattern is regular, symmetrical. GI: No signs and/or symptoms were reported involving the gastrointestinal system. Musculoskeletal: Range of motion: intact in all extremities. 08:40 Reassessment: Patient appears in no apparent distress at this time. No changes from 3 previously documented assessment. 09:30 Reassessment: Pt. went to US. rb3 10:18 Reassessment: Pt. in US. rb3 11:18 Reassessment: Pt. resting with eyes closed, respirations even, unlabored. Family at the [facility] bedside. Call light within reach. 12:13 Reassessment: Patient appears in no apparent distress at this time. Patient and/or rb3 family updated on plan of care and expected duration. Pain level reassessed. Patient is alert, oriented x 3, equal unlabored respirations, skin warm/dry/pink. 13:01 Reassessment: Patient appears in no apparent distress at this time. No changes from 3 previously documented assessment. 14:00 Reassessment: Patient appears in no apparent distress at this time. Patient and/or rb3 family updated on plan of care and expected duration. Pain level reassessed. Patient is alert, oriented x 3, equal unlabored respirations, skin warm/dry/pink. 14:03 Reassessment: called lab to come and draw the Lactate. rb3 15:00 Reassessment: Patient appears in no apparent distress at this time. Patient and/or rb3 family updated on plan of care and expected duration. Pain level reassessed. 16:00 Reassessment: Patient appears in no apparent distress at this time. Patient and/or rb3 family updated on plan of care and expected duration. Pain level reassessed. Patient is alert, oriented x 3, equal unlabored respirations, skin warm/dry/pink. Pt. is on her cell phone. 17:00 Reassessment: Patient appears in no apparent distress at this time. Gave the pt. a rb3 sandwich, chips and a soda to eat. 18:00 Reassessment: Patient appears in no apparent distress at this time. Patient and/or rb3 family updated on plan of care and expected duration. Pain level reassessed. Patient is alert, oriented x 3, equal unlabored respirations, skin warm/dry/pink. 19:00 Reassessment: Patient appears in no apparent distress at this time. Patient and/or ad5 family updated on plan of care and expected duration. Pain level reassessed. Patient is alert, oriented x 3, equal unlabored respirations, skin warm/dry/pink. Patient states feeling better. 20:00 Reassessment: Pt informed awaiting room placement pending negative Covid test. ad5 Repositioned for comfort in stretcher, bed remains low and locked, bedrails x 2, call light within reach. NAD noted, will continue to monitor. Vital Signs: 07:52 BP 150 / 86; Pulse 87; Resp 16; Temp 98.9; Pulse Ox 95% on R/A; iw 08:30 BP 152 / 77; Pulse 87; Resp 18; Pulse Ox 98% ; Pain 4/10; rb3 09:30 rb3 10:18 rb3 11:15 BP 133 / 59; Pulse 82; Resp 17; Pulse Ox 99% ; rb3 12:13 BP 140 / 80; Pulse 76; Resp 16; Pulse Ox 99% ; rb3 14:00 BP 167 / 75; Pulse 74; Resp 17; Pulse Ox 100% ; rb3 16:00 BP 177 / 70; Pulse 75; Resp 17; Pulse Ox 98% ; rb3 17:00 BP 164 / 87; Pulse 95; Resp 16; Pulse Ox 97% ; rb3 18:00 BP 140 / 55; Pulse 79; Resp 17; Pulse Ox 98% ; rb3 19:17 BP 130 / 57; Pulse 82; Resp 16; Pulse Ox 99% on R/A; ad5 09:30 Pt. in US rb3 10:18 Pt. in rb3 ED Course: 06:38 Patient arrived in ED. bp1 07:35 Thomas Gonzáles MD is Attending Physician. kdr 07:35 Anna Simmons, MEREDITH is Primary Nurse. rb3 07:40 Patient has correct armband on for positive identification. Bed in low position. Call rb3 light in reach. Side rails up X 1. Warm blanket given. 07:55 Triage completed. iw 08:00 Arm band placed on. iw 08:20 Inserted saline lock: 20 gauge in right antecubital area, using aseptic technique. rb3 Blood collected. 10:14 US Extremity Venous W Compression Christian In Process Unspecified. EDMS 11:20 CXR XRAY In Process Unspecified. EDMS 16:21 Watson, Mohammad, MD is Hospitalizing Provider. kdr 19:23 COVID-19 : Document "Date of Symptom Onset" if Symptomatic. Sent. ad5 19:55 CORONAVIRUS Sent. ad5 20:39 No provider procedures requiring assistance completed. Patient admitted, IV remains in ad5 place. Administered Medications: 09:25 Drug: Rocephin - (cefTRIAXone) 1 grams Route: IVPB; Infused Over: 30 mins; Site: right rb3 antecubital; 09:40 Follow up: Response: No adverse reaction; IV Status: Completed infusion rb3 Outcome: 16:25 Decision to Hospitalize by Provider. kdr 21:05 Admitted to Med/surg accompanied by nurse, via stretcher, Report called to MEREDITH Benavides ad5 21:05 Condition: stable 21:05 Instructed on the need for admit. 21:06 Patient left the ED. ad5 Signatures: Dispatcher [employer] EDMS Thomas Gonzáles MD MD kdr Anamaria Mcdaniel RN RN iw Dodie Clements Rebecca, RN RN rb3 Sid Duarte ad5
[2020-09-16] MEDS ORDERED: ONDANSETRON 4 MG/2 ML VIAL IV PRN (16:34)
[2020-09-16] MEDS ORDERED: MORPHINE 4 MG/ML SYR IV PRN (16:34)
[2020-09-16] MEDS: ACETAMINOPHEN 500 MG TAB PO PRN (19:58)
[2020-09-16] MEDS ORDERED: ACETAMINOPHEN 500 MG TAB ONE (20:17)
[2020-09-16] MEDS: NA CHLORIDE 0.9% 1,000 ML IV SCH (21:01)
--- NOTE | 2020-09-17 03:32 | P.HP ---
Certification for Inpatient Patient admitted to: Observation With expected LOS: <2 Midnights Patient will require the following post-hospital care: None Practitioner: I am a practitioner with admitting privileges, knowledge of patient current condition, hospital course, and medical plan of care. Services: Services provided to patient in accordance with Admission requirements found in Title 42 Section 412.3 of the Code of Federal Regulations Patient History Date of Service: 09/16/20 Reason for admission: Status post fall; urinary tract infection; leukocytosis; sepsis History of Present Illness: Patient is a 79-year-old female came to the hospital status post fall. Patient apparently fell and he hit her head. Patient has had diminished appetite. The symptoms occur a few days ago. She has some injury to her wrist and her hip. X-rays is been unremarkable. Patient's workup revealed leukocytosis with a urinary tract infection. Patient appears to be septic. She will be admitted to the hospital for further evaluation. Will continue with physical therapy. Workup syncope. Patient would need carotid Doppler and echocardiogram. Patient really does not have anyone to stay with her during the daytime. She is a substantial fall risk. Will get physical therapy working with her and see how she does. However, she will probably need placement at a nursing facility for a short-term or long-term care. Continue monitoring telemetry. Allergies No Known Allergies Allergy (Verified 09/17/20 00:10) Home Medications: Cefdinir [Omnicef] 300 mg PO BID #14 capsule 09/17/20 Cyanocobalamin [Vitamin B-12*] 1,000 mcg SL DAILY #30 tab 09/17/20 Ensure High Protein 237 ml PO TID #90 can 09/17/20 predniSONE [Deltasone] 20 mg PO DAILY #7 tab 09/17/20 - Past Medical/Surgical History Has patient received pneumonia vaccine in the past: No Diabetic: No -: CLL -: Sleeping problems -: Tubal ligation -: Tonsillectomy -: Hip repair-Left hip Psychosocial/ Personal History: Patient lives at home with her son - Family History Father Medical History: Heart disease, Lung disease - Social History Smoking Status: Former smoker Alcohol use: No CD- Drugs: No Caffeine use: Yes Place of Residence: Home Review of Systems 10-point ROS is otherwise unremarkable Physical Examination - Vital Signs Temperature: 97.6 F Blood Pressure: 150/80 Pulse: 71 Respirations: 17 Pulse Ox (%): 98 - Physical Exam General: Alert, In no apparent distress, Oriented x3, Oriented x2 HEENT: Atraumatic, PERRLA, Mucous membr. moist/pink, EOMI, Sclerae nonicteric Neck: Supple, 2+ carotid pulse no bruit, No LAD, Without JVD or thyroid abnormality Respiratory: Clear to auscultation bilaterally, Normal air movement Cardiovascular: Regular rate/rhythm, Normal S1 S2, Systolic murmur Gastrointestinal: Normal bowel sounds, Soft and benign, Non-distended, No tenderness Musculoskeletal: No clubbing, No swelling, No tenderness Integumentary: No rashes Neurological: Normal speech, Normal tone, Sensation intact, Cranial nerves 3-12 intact, Normal affect, Abnormal gait, Abnormal strength Lymphatics: No axilla or inguinal lymphadenopathy - Studies Laboratory Data (last 24 hrs) 09/16/20 08:23: Sodium 143, Potassium 3.6, BUN 19 H, Creatinine 1.33 H, Glucose 104 09/16/20 08:23: WBC 24.50 H*, Hgb 12.0, Hct 36.6, Plt Count 213 Assessment & Plan - Problems (Diagnosis) (1) Near syncope Current Visit: Yes Status: Acute (2) Anemia Current Visit: No Status: Acute (3) CLL (chronic lymphocytic leukemia) Current Visit: No Status: Acute (4) Hyponatremia Current Visit: No Status: Acute (5) Sepsis Current Visit: Yes Status: Acute (6) Urinary tract infection Current Visit: No Status: Acute - Plan Plan: 1. Carotid Doppler and echocardiogram 2. Monitor on telemetry 3. Serial troponins and EKG 4. Monitor for infectious etiology 5. Resume cardiac meds 6. continue antibiotic therapy 7. Monitor leukocytosis; patient with CLL and baseline lymphocytosis 8. Severe debility and patient unable to care for herself. She is by herself during the day time and probably needs 24/7 care. Will have physical therapy work with her and see how she does 9. GI and DVT prophylaxis Discharge Plan: Home Plan to discharge in: 48 Hours - Advance Directives Does patient have a Living Will: Yes Does patient have a Durable POA for Healthcare: Yes - Code Status/Comfort Care Code Status Assessed: Yes Code Status: Full Code Critical Care: No Time Spent Managing PTS Care (In Minutes): 45
[2020-09-17] MEDS: METOPROLOL TAR 25 MG TAB PO SCH ×2 (05:21→17:02)
[2020-09-17] MEDS: NA CHLORIDE 0.9% 1,000 ML IV SCH ×3 (06:15→19:40)
[2020-09-17 06:21] LABS: Absolute Lymphocytes (CBC) 13.1 K/uL (0.7-4.9); Basophils % 0.2 % (0-1.3); Hematocrit 34.5 % (36.0-45.0); MPV 8.2 fL (7.6-11.3); RBC Red Blood Cell Count 3.66 M/uL (3.86-4.86)
[2020-09-17 06:30] LABS: ALT/SGPT 34 U/L (12-78); AST/SGOT 73 U/L (15-37); Albumin 2.4 g/dL (3.4-5.0); Alkaline Phosphatase 276 U/L (45-117); BUN Blood Urea Nitrogen 18 mg/dL (7-18); Bicarbonate 31 mmol/L (21-32); Bilirubin Total 0.6 mg/dL (0.2-1.0); Glucose Level 74 mg/dL (74-106); Potassium 3.5 mmol/L (3.5-5.1); Protein, Total 7.1 g/dL (6.4-8.2); Sodium Level 144 mmol/L (136-145); Troponin I < 0.02 ng/mL (0.0-0.045)
[2020-09-17 07:24] LABS: Folic Acid, (Folate) > 20.0 ng/mL (3.1-17.5)
[2020-09-17] MEDS ORDERED: CYANOCOBALAMIN 1000MCG/ML INJ IM ONE (13:06)
[2020-09-17] MEDS ORDERED: HYDROCORTISONE SUC 100 MG INJ IV ONE (13:06)
[2020-09-17] MEDS ORDERED: CEFTRIAXONE 1 GM/NS 50 ML 1 GM/50 ML BAG IV ONE (13:06)
[2020-09-17] MEDS ORDERED: CEFTRIAXONE/SWI 1gm 1 GM/10 ML SYR IV SCH ×2 (13:15→17:00)
[2020-09-17] MEDS ORDERED: ENSURE HIGH PROTEIN 237 ML CAN PO SCH (14:00)
[2020-09-17] MEDS: CEFTRIAXONE/SWI 1gm 1 GM/10 ML SYR IV SCH (14:00)
[2020-09-17] MEDS: ENSURE ENLIVE 237 ML CAN PO SCH ×2 (14:11→20:48)
--- NOTE | 2020-09-17 17:11 | RAD REPORT ---
EXAM DESCRIPTION: - CP - 09/17/2020 4:55 pm CLINICAL HISTORY: Syncope COMPARISON: None TECHNIQUE: Real-time sonographic evaluation of bilateral carotid and vertebral systems was performed . Cisneros scale and Doppler interrogation were performed with waveform tracing bilaterally. FINDINGS: Normal high resistance waveforms are noted in both external carotid arteries. The common c arotid arteries and internal carotid arteries show normal low resistance waveforms. Noncalcified plaquing changes are present in each carotid bulb in the right ICA. Visually these plaqu ing changes do not cause a significant degree of luminal narrowing. No dissection changes are present . Peak systolic and end diastolic velocity values and the ICA/CCA ratios are in the non-hemodynamical ly significant range. Antegrade flow seen in both vertebral arteries. Velocity values and ratios were recorded and are retained in the patient's imaging records. IMPRESSION: No significant atherosclerotic changes noted. No evidence of a hemodynamically significant stenosis.
[2020-09-17] MEDS: ACETAMINOPHEN 500 MG TAB PO PRN (17:38)
[2020-09-18] MEDS: NA CHLORIDE 0.9% 1,000 ML IV SCH ×3 (05:12→22:52)
[2020-09-18] MEDS: METOPROLOL TAR 25 MG TAB PO SCH ×2 (05:13→17:27)
[2020-09-18] MEDS: ENSURE ENLIVE 237 ML CAN PO SCH ×3 (08:38→20:54)
[2020-09-18] MEDS: CEFTRIAXONE/SWI 1gm 1 GM/10 ML SYR IV SCH (08:38)
[2020-09-18] MEDS: CYANOCOBALAMIN 1,000 MCG TAB SL SCH (08:39)
[2020-09-18] MEDS ORDERED: CEFTRIAXONE 1 GM/NS 50 ML 1 GM/50 ML BAG IV SCH (09:00)
[2020-09-19] MEDS: METOPROLOL TAR 25 MG TAB PO SCH ×2 (06:41→17:18)
[2020-09-19] MEDS: CEFTRIAXONE/SWI 1gm 1 GM/10 ML SYR IV SCH (08:51)
[2020-09-19] MEDS: CYANOCOBALAMIN 1,000 MCG TAB SL SCH (08:51)
[2020-09-19] MEDS: ENSURE ENLIVE 237 ML CAN PO SCH ×3 (08:52→21:52)
[2020-09-19] MEDS: NA CHLORIDE 0.9% 1,000 ML IV SCH (09:37)
[2020-09-19] MEDS: ACETAMINOPHEN 500 MG TAB PO PRN (17:18)
--- NOTE | 2020-09-19 20:41 | P.PN ---
Subjective Date of Service: 09/17/20 Patient strength is declined. Patient still is not participating that well. She does not really seem that encouraged to get out of bed. She had a shuffled gait with therapy. Will encourage her to keep participating a little more aggressively & arrange for a senior living facility placement per family's request Review of Systems 10-point ROS is otherwise unremarkable Physical Examination - Vital Signs Temperature: 98.7 F Blood Pressure: 137/64 Pulse: 70 Respirations: 16 Pulse Ox (%): 98 - Physical Exam General: Alert, In no apparent distress, Cachectic, Disheveled Respiratory: Clear to auscultation bilaterally, Normal air movement Cardiovascular: Regular rate/rhythm, Normal S1 S2, Systolic murmur Gastrointestinal: Normal bowel sounds, Soft and benign, Non-distended, No tenderness Musculoskeletal: No clubbing, No swelling, No tenderness Neurological: Sensation intact, Cranial nerves 3-12 intact, Abnormal gait, Abnormal strength - Studies Medications List Reviewed: Yes Assessment & Plan - Problems (Diagnosis) (1) Near syncope Current Visit: Yes Status: Acute (2) Anemia Current Visit: No Status: Acute (3) CLL (chronic lymphocytic leukemia) Current Visit: No Status: Acute (4) Hyponatremia Current Visit: No Status: Acute (5) Sepsis Current Visit: Yes Status: Acute (6) Urinary tract infection Current Visit: No Status: Acute (7) Shuffling gait Current Visit: Yes Status: Acute - Plan Plan: 1. syncope workup with no significant abnormalities 2. continue monitoring on telemetry 3. No signs of infection-discontinue antibiotic therapy 4. Monitor leukocytosis; patient with CLL and baseline lymphocytosis 5. Severe debility and patient unable to care for herself. She is by herself during the day time and probably needs 24/7 care. Patient also with shuffled gait. Will need placement. Possible Parkinson's disease. 6. GI and DVT prophylaxis Discharge Plan: Home Plan to discharge in: Greater than 2 days - Advance Directives Does patient have a Living Will: Yes Does patient have a Durable POA for Healthcare: Yes - Code Status/Comfort Care Code Status: Full Code Critical Care: No Time Spent Managing PTS Care (In Minutes): 35
--- NOTE | 2020-09-19 20:45 | P.PN ---
Date of Service: 09/18/20 Subjective Patient encouraging to get out of bed into a chair for her meals. Spoke to the son and he states that she will do as little as we allow are. He wanted us to get patient out of bed into the chair as much as possible. Review of Systems 10-point ROS is otherwise unremarkable Physical Examination - Vital Signs Reviewed - Physical Exam General: Alert, In no apparent distress, Cachectic, Disheveled Respiratory: Clear to auscultation bilaterally, Normal air movement Cardiovascular: Regular rate/rhythm, Normal S1 S2, Systolic murmur Gastrointestinal: Normal bowel sounds, Soft and benign, Non-distended, No tenderness Musculoskeletal: No clubbing, No swelling, No tenderness Neurological: Sensation intact, Cranial nerves 3-12 intact, Abnormal gait- shuffling, Abnormal strength - Studies Medications List Reviewed: Yes Assessment & Plan - Problems (Diagnosis) (1) Near syncope Current Visit: Yes Status: Acute (2) Anemia Current Visit: No Status: Acute (3) CLL (chronic lymphocytic leukemia) Current Visit: No Status: Acute (4) Hyponatremia Current Visit: No Status: Acute (5) Sepsis Current Visit: Yes Status: Acute (6) Urinary tract infection Current Visit: No Status: Acute (7) Shuffling gait Current Visit: Yes Status: Acute - Plan Plan: 1. syncope workup with no significant abnormalities 2. Will discontinue telemetry 3. No signs of infection-discontinue antibiotic therapy secondary most likely related to CLL 4. Monitor leukocytosis; patient with CLL and baseline lymphocytosis 5. Severe debility and patient unable to care for herself. She is by herself during the day time and probably needs 24/7 care. Patient also with shuffled gait. Will need placement. Possible Parkinson's disease. 6. GI and DVT prophylaxis Discharge Plan: Home Plan to discharge in: Greater than 2 days - Advance Directives Does patient have a Living Will: Yes Does patient have a Durable POA for Healthcare: Yes - Code Status/Comfort Care Code Status: Full Code Critical Care: No Time Spent Managing PTS Care (In Minutes): 35 - Discharge planning Family requesting placement at [facility] for SNF
--- NOTE | 2020-09-19 20:46 | P.PN ---
Date of Service: 09/19/20 Subjective Patient doing well and no new complaints. Awaiting for placement at [facility]. Nursing staff getting out of bed to a chair. Neurology consultation for Parkinson's Review of Systems 10-point ROS is otherwise unremarkable Physical Examination - Vital Signs Reviewed - Physical Exam General: Alert, In no apparent distress, Cachectic, Disheveled Respiratory: Clear to auscultation bilaterally, Normal air movement Cardiovascular: Regular rate/rhythm, Normal S1 S2, Systolic murmur Gastrointestinal: Normal bowel sounds, Soft and benign, Non-distended, No tenderness Musculoskeletal: No clubbing, No swelling, No tenderness Neurological: Sensation intact, Cranial nerves 3-12 intact, Abnormal gait- shuffling, Abnormal strength - Studies Medications List Reviewed: Yes Assessment & Plan - Problems (Diagnosis) (1) Near syncope Current Visit: Yes Status: Acute (2) Anemia Current Visit: No Status: Acute (3) CLL (chronic lymphocytic leukemia) Current Visit: No Status: Acute (4) Hyponatremia Current Visit: No Status: Acute (5) Sepsis Current Visit: Yes Status: Acute (6) Urinary tract infection Current Visit: No Status: Acute (7) Shuffling gait Current Visit: Yes Status: Acute - Plan Plan: 1. syncope workup with no significant abnormalities; neurology consultation for Parkinson's 2. Will discontinue telemetry 3. No signs of infection-discontinue antibiotic therapy secondary most likely related to CLL 4. Monitor leukocytosis; patient with CLL and baseline lymphocytosis 5. Severe debility and patient unable to care for herself. She is by herself during the day time and probably needs 24/7 care. Patient also with shuffled gait. Will need placement. Possible Parkinson's disease. Neurology consultation pending 6. GI and DVT prophylaxis Discharge Plan: Home Plan to discharge in: Greater than 2 days - Advance Directives Does patient have a Living Will: Yes Does patient have a Durable POA for Healthcare: Yes - Code Status/Comfort Care Code Status: Full Code Critical Care: No Time Spent Managing PTS Care (In Minutes): 35 - Discharge planning Family requesting placement at [facility] for SNF
[2020-09-19] MEDS ORDERED: CYANOCOBALAMIN 1000MCG/ML INJ IM ONE (20:47)
[2020-09-19 23:21] VITALS: O2SAT 97
[2020-09-20] MEDS: METOPROLOL TAR 25 MG TAB PO SCH ×2 (05:30→20:15)
[2020-09-20 05:43] LABS: Absolute Lymphocytes (CBC) 12.4 K/uL (0.7-4.9); Basophils % 0.2 % (0-1.3); Hematocrit 31.3 % (36.0-45.0); MPV 8.3 fL (7.6-11.3); RBC Red Blood Cell Count 3.31 M/uL (3.86-4.86)
--- NOTE | 2020-09-20 05:49 | P.PN ---
Subjective Date of Service: 09/20/20 Chief Complaint: Status post fall; urinary tract infection; leukocytosis; sepsis Subjective: Other (Feeling better. No more pain to the legs. Desires to get PT started. Desires to go to SNF.) Physical Examination - Vital Signs Temperature: 98.1 F Blood Pressure: 154/75 Pulse: 64 Respirations: 18 Pulse Ox (%): 96 - Studies Medications List Reviewed: Yes Assessment & Plan Discharge Plan: Other (senior care facility) Plan to discharge in: 24 Hours Physician Review Additional Text: Physical exam General: Patient alert, cooperative Heart: Regular rate and rhythm Lungs: Clear to auscultation GI: Soft nontender nondistended Extremities: Good range of motion. Impression Near syncope likely related to UTI, urine culture positive for E. coli History of CLL Shuffled gait suspect Parkinson's Hypertension Plan: Near syncope likely related to UTI, urine culture positive for E. coli: Will transition to Ceftin for 7 days. UTI prevention initiated. Physical therapy to evaluate patient for skilled placement. Diuretic therapy discontinued. This includes Maxzide and Lasix. Anticipate approval within the next 48 hours for skilled placement. History of CLL: Continue to monitor closely. Shuffled gait suspect Parkinson's: Recommend skilled placement. Possible underlying Parkinson's. Neurology consulted. Await recommendations. Fall precautions in place. Physical therapy and Occupational Therapy to continue to assess. Anticipate approval for skilled placement. Hypertension: Continue metoprolol 25 mg 1 pill twice daily. Restart Norvasc for better control. Continue to hold Maxzide. Will monitor and adjust appropriately. CODE STATUS: Full code DVT prophylaxis: Lovenox Advance care [id number] minutes: Patient wishes to go to a skilled facility to continue rehabilitation. Anticipate improvement and approval within the next [address] in place. Time Spent Managing Pts Care (In Minutes): 55
[2020-09-20 06:06] LABS: Magnesium 2.1 mg/dL (1.8-2.4); Potassium 4.2 mmol/L (3.5-5.1)
[2020-09-20 07:35] LABS: Anisocytosis 1+; Blood Morphology Comment NOTED (NOT SEEN); Platelet Estimate ADEQ; Smudge Cells PRESENT
--- NOTE | 2020-09-20 08:24 | ECHO ---
HEIGHT: 4 ft 11 in WEIGHT: 77 lb 0 oz DATE OF STUDY: 09/17/[address]: Gt Watson MD 2-DIMENSIONAL: YES M.MODE: YES DOPPLER: YES COLOR FLOW: YES TDS: NO PORTABLE: NO DEFINITY: NO BUBBLE STUDY: NO DIAGNOSIS: SYNCOPE CARDIAC HISTORY: CATHERIZATION: NO SURGERY: NO PROSTHETIC VALVE: NO PACEMAKER: NO MEASUREMENTS (cm) DIASTOLIC (NORMALS) SYSTOLIC (NORMALS) IVSd 0.8 (0.6-1.2) LA Diam 1.8 (1.9-4.0) LVEF 63% LVIDd 3.1 (3.5-5.7) LVIDs 2.1 (2.0-3.5) %FS 33% LVPWd 1.0 (0.6-1.2) Ao Diam 2.3 (2.0-3.7) 2 DIMENSIONAL ASSESSMENT: RIGHT ATRIUM: NORMAL LEFT ATRIUM: NORMAL RIGHT VENTRICLE: NORMAL LEFT VENTRICLE: NORMAL TRICUSPID VALVE: NORMAL MITRAL VALVE: NORMAL PULMONIC VALVE: NORMAL AORTIC VALVE: NORMAL PERICARDIAL EFFUSION: NONE AORTIC ROOT: NORMAL LEFT VENTRICULAR WALL MOTION: NORMAL. DOPPLER/COLOR FLOW: NORMAL. COMMENTS: NORMAL 2D ECHO WITH DOPPLER. NO WALL MOTION ABNORMALITY. NO EFFUSION. TECHNOLOGIST: LUIS A MANLEY
[2020-09-20] MEDS: ENSURE ENLIVE 237 ML CAN PO SCH ×3 (09:00→21:00)
[2020-09-20] MEDS ORDERED: CYANOCOBALAMIN 1000MCG/ML INJ IM SCH (09:00)
[2020-09-20] MEDS: CEFUROXIME 250 MG TAB PO SCH ×2 (09:21→20:13)
[2020-09-20] MEDS: CYANOCOBALAMIN 1,000 MCG TAB SL SCH (09:22)
[2020-09-20] MEDS ORDERED: MIRTAZAPINE 15 MG TAB PO PRN (12:18)
[2020-09-20] MEDS: ACETAMINOPHEN 500 MG TAB PO PRN ×2 (12:24→20:14)
[2020-09-20] MEDS ORDERED: ENOXAPARIN 40 MG/0.4 ML SQ SCH (17:00)
[2020-09-20] MEDS ORDERED: MIRTAZAPINE 15 MG TAB PO SCH (21:00)
[2020-09-20 21:46] VITALS: BMI 19.9
--- NOTE | 2020-09-20 22:47 | CON ---
Consultation called because of possible Parkinson disease. History Of Present Illness: Ms. Antonio is a 79-year-old right-handed patient who was admitt ed to [facility] on 09/17/2020 after a fall diagnosed with urinary tract infection, leukocyt osis, and possible sepsis. The patient's fall history dates back many months and she has been hospit alized previously about a year ago after falling. She has had more difficulty with gait, more slow w alking, more shuffling of her steps, and poor posture with postural instability. The patient denies any seizure-like activity. No focal weakness or numbness in her face, arm, or leg prior to falls. S he said she would just not be able to move and will lose her balance and fall. She has had therapy i n the past, but at this point is interested in Home Health providing therapy and perhaps a safer plac e such as a custodial, which is what she was interested in. Her complete blood count with diff erential shows an elevated white blood cell count which on admission was up to 24,000 with neutrophil s being 78%. Earlier today, it was 16,700 with neutrophils 22. It should be noted she likely has a CLL and has had long-standing chronic white blood cell elevation of 62,000, back in March 2020 and 27,000 July of 2020, and it is likely due to CLL. Her basic metabolic panel is remarkable for slig htly elevated BUN, chloride. Low calcium of 7.6. Slightly elevated folic acid and slightly low ther apeutic B12 level of 387. TSH was normal and the liver function showed elevated AST of 73, alkaline phosphatase was elevated at 276. Urinalysis did show a trace of esterase, trace of blood, 20 to 50 w praneeth blood cells, 5 to 10 red blood cells with less than 50 bacteria. Her echocardiogram showed ejec tion fraction of 63% with a normal study. Carotid artery ultrasound showed no significant arthroscle rotic issues. No evidence of hemodynamically significant stenosis. Past Medical History: She does have a CLL as noted. Allergies: NO KNOWN DRUG ALLERGIES. Medications: At home cefdinir 300 mg twice daily, vitamin B12 1000 mcg sublingual daily, Ensure high protein 3 times daily, prednisone 10 mg daily. Surgical History: Tubal ligation, tonsillectomy, left hip surgery. Family History: Heart disease, lung disease in father. Social History: Smoked in the past. Drinks caffeinated beverages. No alcohol use. Review of Systems: As noted, she has had difficulty with balance, coordination, gait, tendency to fall. No recent fever s or chills, nausea, vomiting. Mild myalgias and arthralgias. Otherwise, negative on the systems re view. Physical Examination: Vital Signs: Blood pressure 153/75, pulse 64, respiratory rate 16, temperature 98.1, oxygen saturati on 96% room air. General: Ms. Antonio is resting in bed. She is in no significant distress. HEENT: She is normocephalic, atraumatic. Sclerae anicteric. Oropharynx is moist and pink. Neck: Supple. Chest: Clear. Extremities: She does have some bruising on the left hand in the dorsum and the left forearm and the right forearm as well as from her falls. Neuro: Otherwise, general exam showed no significant deficits. On cranial nerve examination, she do es have a masklike face with decreased blink rate and decreased smiling. Her cranial nerves show sli ght decrease to the left nasolabial fold, which is chronic with good excursions. Her motor examinati on shows slight asymmetry in the left versus right, but at least 4+ to 5- throughout. Right side see ms slightly stronger than the left, but this is chronic per the patient. She is at her baseline in t erms of strength. Sensation: Stocking-glove loss. Light touch temperature in the arm and leg. Security Control Center Operator rdination is slow, but intact. Her gait, she does have a shuffling gait, decreased stride length, an d ambulated with a walker and physical therapy. Assessment: Ms. Antonio is a 79-year-old patient with features of Parkinson disease including bradykin esia, stiffness. She does not have any significant tremor at the time she did say she zapata s at times have some tremors, but she has a postural instability with a tendency to fall. Plan: 1.She may benefit from a Matthew scan to rule out Parkinson disease and also when possible a brain MRI. 2.May consider Sinemet 25/100 twice daily. 3.Physical therapy while in the hospital and after discharge. 4.Continue with aggressive management of any potential infection and continue with her CLL managemen t as per primary team. After discharge, the patient may follow up in Dr. Mckee's office in [address] [place] [address]. RAGHAV Voice ID: [id number] Report ID: [id number]
--- NOTE | 2020-09-21 05:48 | P.PN ---
Subjective Date of Service: 09/21/20 Chief Complaint: Status post fall; urinary tract infection; leukocytosis; sepsis Subjective: Doing well Physical Examination - Vital Signs Temperature: 97.5 F Blood Pressure: 177/74 Pulse: 66 Respirations: 17 Pulse Ox (%): 97 - Studies Medications List Reviewed: Yes Assessment & Plan Discharge Plan: Other (detention facility) Plan to discharge in: 24 Hours Physician Review Additional Text: Physical exam General: Patient alert, cooperative Heart: Regular rate and rhythm Lungs: Clear to auscultation GI: Soft nontender nondistended Extremities: Good range of motion. Impression Near syncope likely related to UTI, urine culture positive for E. coli History of CLL Shuffled gait suspect Parkinson's Hypertension Plan: Near syncope likely related to UTI, urine culture positive for E. coli: Continue with Ceftin for total of 7 days. UTI prevention initiated. Continue with physical therapy. Diuretic therapy discontinued. This includes Maxzide and Lasix. Await approval for skilled placement. History of CLL: Continue to monitor closely. Shuffled gait suspect Parkinson's: Continue to recommend skilled placement. Continue physical therapy. Await approval for skilled placement. Neurology recommended possible additional medicationSinemet if with increase tremors or difficulty with mobility. Will rediscuss plan of care with neurology. Hypertension: Continue metoprolol 25 mg 1 pill twice daily. Will increase Norvasc to 10 mg for better blood pressure control. Continue to hold Maxzide. Will monitor and adjust appropriately. CODE STATUS: Full code DVT prophylaxis: Lovenox Advance care [id number] minutes: Continue physical therapy. Await approval for skilled placement. Time Spent Managing Pts Care (In Minutes): 55
[2020-09-21] MEDS: METOPROLOL TAR 25 MG TAB PO SCH (06:17)
[2020-09-21] MEDS ORDERED: AMLODIPINE 5 MG TAB PO SCH (09:00)
[2020-09-21] MEDS: ENSURE ENLIVE 237 ML CAN PO SCH ×2 (09:00→14:00)
[2020-09-21] MEDS: CYANOCOBALAMIN 1,000 MCG TAB SL SCH (09:53)
[2020-09-21] MEDS: CEFUROXIME 250 MG TAB PO SCH (09:53)
[2020-09-21] MEDS: ACETAMINOPHEN 500 MG TAB PO PRN (09:53)
--- NOTE | 2020-09-21 12:43 | P.DS ---
Admission Date: 09/17/20 Discharge Date: 09/21/20 Primary Care Provider: Dr. Rivera Disposition: TRANSFER TO SNF - MEDICAL Discharge Condition: GOOD Reason for Admission: Status post fall; urinary tract infection; leukocytosis; sepsis Consultations: Neurology-Dr. Mckee Procedures: CXR: FINDINGS: Baseline fibrotic lung changes are present. Patient is substantially rotated for this examination distorting the mediastinum. No peripheral mass or consolidation. No significant failure or volume overload seen. Heart and vasculature are normal. No measurable pleural effusion and no pneumothorax. No acute bony abnormality seen. No acute aortic findings suspected. IMPRESSION: Limited portable study showing baseline fibrotic lung change but no acute cardiopulmonary finding. ECHO: MEASUREMENTS (cm) DIASTOLIC (NORMALS) SYSTOLIC (NORMALS) IVSd 0.8 (0.6-1.2) LA Diam 1.8 (1.9-4.0) LVEF 63% LVIDd 3.1 (3.5-5.7) LVIDs 2.1 (2.0-3.5) %FS 33% LVPWd 1.0 (0.6-1.2) Ao Diam 2.3 (2.0-3.7) 2 DIMENSIONAL ASSESSMENT: RIGHT ATRIUM: NORMAL LEFT ATRIUM: NORMAL RIGHT VENTRICLE: NORMAL LEFT VENTRICLE: NORMAL TRICUSPID VALVE: NORMAL MITRAL VALVE: NORMAL PULMONIC VALVE: NORMAL AORTIC VALVE: NORMAL PERICARDIAL EFFUSION: NONE AORTIC ROOT: NORMAL LEFT VENTRICULAR WALL MOTION: NORMAL. DOPPLER/COLOR FLOW: NORMAL. COMMENTS: NORMAL 2D ECHO WITH DOPPLER. NO WALL MOTION ABNORMALITY. NO EFFUSION. Venous Doppler: FINDINGS: Normal compressibility, flow augmentation, phasic flow and spontaneous flow are identified in the left and right lower extremity common femoral, superficial femoral, popliteal and posterior tibial veins. No intraluminal filling defects seen. IMPRESSION: No DVT in either lower extremity. Carotid Doppler: FINDINGS: Normal high resistance waveforms are noted in both external carotid arteries. The common carotid arteries and internal carotid arteries show normal low resistance waveforms. Noncalcified plaquing changes are present in each carotid bulb in the right ICA. Visually these plaquing changes do not cause a significant degree of luminal narrowing. No dissection changes are present. Peak systolic and end diastolic velocity values and the ICA/CCA ratios are in the non-hemodynamically significan t range. Antegrade flow seen in both vertebral arteries. Velocity values and ratios were recorded and are retained in the patient's imaging records. IMPRESSION: No significant atherosclerotic changes noted. No evidence of a hemodynamically significant stenosis. Impression Near syncope likely related to UTI, urine culture positive for E. coli History of CLL Recent Fall with Shuffled gait suspect Parkinson's Hypertension Vitamin B12 deficiency Brief History of Present Illness: 79-year-old female presented to the emergency room after a fall. She apparently fell and hit her head. She had reported some diminished appetite. Patient found to have UTI. Patient was admitted for further evaluation and treatment. Hospital Course: Patient presented with fall and near syncope. Patient found to have UTI. Urine culture was positive for E coli. The patient was admitted for treatment. During the course of her stay patient improved. Patient was evaluated for skilled placement. Patient was approved. Patient will be discharge to skilled facility to continue placement. At discharge patient will continue with Ceftin 500 mg 1 pill twice daily for 3 more days to complete UTI treatment. UTI prevention provided. Fall precautions in place. Recommend to recheck lab-BMP in 1-2 weeks to monitor her progress. Patient with hypertension. Patient was evaluated for syncope. Echocardiogram and carotid Doppler unremarkable. Medications were adjusted during the course of her stay. Maxzide and Lasix were discontinued as the patient appeared dry. Metoprolol was continued. Norvasc was added. At discharge will recommend to discontinue Maxzide, Lasix and potassium supplementation. At discharge blood pressures remain stable on metoprolol 25 mg 1 pill twice daily and Norvasc 10 mg daily. Recommend to maintain blood pressure less than 130/80. Further adjustment can be done by her PCP. Patient with shuffled gait also with recent fall. Patient was evaluated by Neurology. Neurology recommended to continue physical therapy with skilled placement at discharge. Patient would benefit with a Matthew scan to rule out Parkinson's in the future with possible MRI. Consider starting Sinemet 25/100 mg 1 pill twice daily as an outpatient if the shuffled gait persist. This can be done with the help of her PCP. Recommend follow up with neurology as an outpatient to further address. Patient with underlying CLL. At discharge patient will follow up with hematology to further monitor. Recommend to recheck CBC in 1-2 weeks to monitor her progress. Patient found to have vitamin B12 deficiency. At discharge she will continue with vitamin B12 supplementation. Patient will also continue with Ensure supplementation 3 times a day. Patient may continue with Remeron 7.5 mg at bedtime for insomnia. Vital Signs/Physical Exam: Temp Pulse Resp BP Pulse Ox 98.5 F 67 14 146/67 H 97 09/21/20 12:00 09/21/20 12:00 09/21/20 12:00 09/21/20 12:00 09/21/20 12:00 General: Alert, In no apparent distress, Oriented x3, Cooperative HEENT: Atraumatic Neck: Supple Respiratory: Clear to auscultation bilaterally, Normal air movement Cardiovascular: Normal pulses, Regular rate/rhythm Gastrointestinal: Normal bowel sounds, Soft and benign, Non-distended, No masses, No rebound, No guarding Neurological: Normal speech, Normal strength at 5/5 x4 extr, Normal tone, Normal affect Laboratory Data at Discharge: WBC 16.70 K/uL (4.3-10.9) H 09/20/20 05:16 Hgb 10.1 g/dL (12.0-15.0) L 09/20/20 05:16 Hct 31.3 % (36.0-45.0) L 09/20/20 05:16 Plt Count 180 K/uL (152-406) 09/20/20 05:16 Sodium 144 mmol/L (136-145) 09/20/20 05:16 Potassium 4.2 mmol/L (3.5-5.1) 09/20/20 05:16 BUN 28 mg/dL (7-18) H 09/20/20 05:16 Creatinine 0.76 mg/dL (0.55-1.3) 09/20/20 05:16 Glucose 93 mg/dL (74-106) 09/20/20 05:16 Magnesium 2.1 mg/dL (1.8-2.4) 09/20/20 05:16 Total Bilirubin 0.6 mg/dL (0.2-1.0) 09/17/20 05:45 AST 73 U/L (15-37) H 09/17/20 05:45 ALT 34 U/L (12-78) 09/17/20 05:45 Alkaline Phosphatase 276 U/L (45-117) H 09/17/20 05:45 Troponin I < 0.02 ng/mL (0.0-0.045) 09/19/20 04:17 Home Medications: Cyanocobalamin [Vitamin B-12*] 1,000 mcg SL DAILY #30 tab 09/17/20 Mirtazapine 1 tab PO BEDTIME 09/17/20 predniSONE [Deltasone] 20 mg PO DAILY #7 tab 09/17/20 Amlodipine [Norvasc*] 10 mg PO DAILY #30 tab 09/21/20 Cefuroxime [Ceftin*] 500 mg PO BID #12 tab 09/21/20 Ensure Enlive 237 ml PO TID #60 can 09/21/20 Metoprolol Tartrate [Lopressor*] 25 mg PO BID 6AM 6PM #60 tab 09/21/20 New Medications: Cefuroxime [Ceftin*] 500 mg PO BID #12 tab Ensure Enlive 237 ml PO TID #60 can Metoprolol Tartrate [Lopressor*] 25 mg PO BID 6AM 6PM #60 tab Amlodipine [Norvasc*] 10 mg PO DAILY #30 tab predniSONE [Deltasone] 20 mg PO DAILY #7 tab Cyanocobalamin [Vitamin B-12*] 1,000 mcg SL DAILY #30 tab Physician Discharge Instructions: Patient presented with fall and near syncope. Patient found to have UTI. Urine culture was positive for E coli. The patient was admitted for treatment. During the course of her stay patient improved. Patient was evaluated for skilled placement. Patient was approved. Patient will be discharge to skilled facility to continue placement. At discharge patient will continue with Ceftin 500 mg 1 pill twice daily for 3 more days to complete UTI treatment. UTI prevention provided. Fall precautions in place. Recommend to recheck lab-BMP in 1-2 weeks to monitor her progress. Patient with hypertension. Patient was evaluated for syncope. Echocardiogram and carotid Doppler unremarkable. Medications were adjusted during the course of her stay. Maxzide and Lasix were discontinued as the patient appeared dry. Metoprolol was continued. Norvasc was added. At discharge will recommend to discontinue Maxzide, Lasix and potassium supplementation. At discharge blood pressures remain stable on metoprolol 25 mg 1 pill twice daily and Norvasc 10 mg daily. Recommend to maintain blood pressure less than 130/80. Further adjustment can be done by her PCP. Patient with shuffled gait also with recent fall. Patient was evaluated by Neurology. Neurology recommended to continue physical therapy with skilled placement at discharge. Patient would benefit with a Matthew scan to rule out Park inson's in the future with possible MRI. Consider starting Sinemet 25/100 mg 1 pill twice daily as an outpatient if the shuffled gait persist. This can be done with the help of her PCP. Recommend follow up with neurology as an outpatient to further address. Patient with underlying CLL. At discharge patient will follow up with hematology to further monitor. Recommend to recheck CBC in 1-2 weeks to monitor her progress. Patient found to have vitamin B12 deficiency. At discharge she will continue with vitamin B12 supplementation. Patient will also continue with Ensure supplementation 3 times a day. Patient may continue with Remeron 7.5 mg at bedtime for insomnia. Diet: AHA Activity: Fall precautions Followup: NONE,NONE [Primary Care Provider] - Time spent managing pt's care (in minutes): 55
[2020-09-21 16:24] VITALS: BP 141/60; TEMP 98.4
[2020-09-22] MEDS ORDERED: AMLODIPINE 10 MG TAB PO SCH (09:00)
== END 2020-09-21 16:50 | DRG 689 ==
LOC: ER 06:35 → ERHOLD 16:34 → 2ND 19:21 → OBSVTOIN 09-17 14:45
PROVIDERS: ADMIT Hospitalist; ATTEND Hospitalist
DX: N39.0 Urinary tract infection, site not specified (principal); E43 Unspecified severe protein-calorie malnutrition; C91.10 Chronic lymphocytic leukemia of B-cell type not having achieved remission; E87.1 Hypo-osmolality and hyponatremia; B96.20 Unspecified Escherichia coli [E. coli] as the cause of diseases classified elsewhere; G20 Parkinson's disease; I10 Essential (primary) hypertension; E53.8 Deficiency of other specified B group vitamins; G47.00 Insomnia, unspecified; R55 Syncope and collapse; Z68.20 Body mass index [BMI] 20.0-20.9, adult; D64.9 Anemia, unspecified; Z20.822 Contact with and (suspected) exposure to COVID-19
CPT/HCPCS: 36415; 71045; 80048; 80053; 81003; 81015; 82533; 82607; 82746; 83540; 83605; 83735; 84145; 84439; 84443; 84484; 85025; 85652; 87077; 87086; 87088; 87186; 93306; 93880; 93970; 96374; 97116; 97161; 97530; 99285; G0378; J0696; J1650; J1720; J3420; J7030; U0003

== ENCOUNTER 2021-01-04 15:23 | Emergency (ER) | payer OTHER ==
[2021-01-04] MEDS ORDERED: FENTANYL CITR 100 MCG/2 ML ONE ×2 (16:45→20:35)
[2021-01-04] MEDS ORDERED: ONDANSETRON 4 MG/2 ML VIAL ONE (16:45)
--- NOTE | 2021-01-04 16:58 | RAD REPORT ---
EXAM DESCRIPTION: CT - Pelvis Wo Cont - 01/04/2021 4:39 pm CLINICAL HISTORY: bilateral hip pain s/p fall COMPARISON: CT chest abdomen and pelvis exam November 2019 TECHNIQUE: Axial 2 millimeter thick images of the pelvis were obtained with sagittal and coronal ref ormatted images generated and reviewed. All CT scans are performed using dose optimization technique as appropriate and may include automate d exposure control or mA/KV adjustment according to patient size. FINDINGS: No L5 compression fracture. No compression of the sacral or coccygeal segments. There is a faint transverse lucency through the S1 body. There is subtle buckling of cortex in the left-side sa cral ala. Sacral insufficiency fracture is possible. This may predate the most recent falls. Osteopen ia of the skeleton limits optimal detail. Patient has SI joint degenerative change. No acute fracture of the ilium, ischium or pubis identifiable. No pubic diastases. Surgical hardware is in place from prior proximal femur fracture repair. Age of the repair is unknown . No comparative imaging available. Bony union in the intertrochanteric and subtrochanteric region of the complex fracture pattern is incomplete. No AVN of the right femoral head. No dislocation. Acute fracture is present involving the superior as pect of the greater trochanter extending into the posterior base of the neck. The subcapital region o f the right femur is intact. Lesser trochanter is intact. No pathologic bone changes. IMPRESSION: Acute fracture is present involving the superior aspect of the right greater trochanter extending into the base of the neck. No pathologic change. Suspected sacral insufficiency fracture involving the sacral ala and S1 body. This may pre dates the acute fall history. Surgical repair of a complex proximal left femur fracture with incomplete bony union of the fracture fragments. Age of the fracture repair is unknown.
--- NOTE | 2021-01-04 17:24 | RAD REPORT ---
EXAM DESCRIPTION: RAD - Femur Right - 01/04/2021 5:02 pm CLINICAL HISTORY: PAIN COMPARISON: CT Pelvis Wo Cont dated 01/04/2021; Femur Left dated 01/04/2021 FINDINGS: Imaging of the right femur was performed in conjunction with a separately reported CT pelv is. No AVN or focal femoral head abnormality. No right femoral head dislocation. The subcapital region of the proximal right femur is intact. Right genny pelvis is intact with the right sacral ala too obscur ed by bowel for assessment. SI joint degenerative changes are present. There is cortical irregularity involving the superior aspect of the greater trochanter. CT study better demonstrates this fracture that extends into the base of the neck. No angulation abnormality of the femoral neck relative to the shaft. Greater trochanter is intact. No pathologic bone process. No air or foreign body in the soft tissues. IMPRESSION: Subtle fracture involving the superior aspect right greater trochanter better visualized on the separately reported CT pelvis.
--- NOTE | 2021-01-04 17:27 | RAD REPORT ---
EXAM DESCRIPTION: RAD - Femur Left - 01/04/2021 5:02 pm CLINICAL HISTORY: PAIN COMPARISON: None. FINDINGS: Patient is status post fracture repair of the proximal left femur. Intertrochanteric and s ubtrochanteric fractures are present fixed with a intramedullary sheila and femoral neck screw. Lesser t rochanter is a free fracture fragment. Age of this fracture repair is unknown. There is some callus f ormation present in the intertrochanteric and subtrochanteric region. Bony union is incomplete. No co mparison is available to determine if there has been any change in alignment or positioning of the blanca rdware or fracture fragments. An acute fracture is not confirmed. Imaged portions of the left hemipelvis show no acute pelvic fracture. Left sacral ala is obscured by bowel. No air or foreign body in the soft tissues. IMPRESSION: Intramedullary sheila is in place with nail in the femoral head and neck region fixing an i ntertrochanteric and subtrochanteric incompletely healed fracture. Age of the fracture or tear is unknown. No comparison is available to determine if there is been any change in alignment or position of the fracture fragments. An acute fracture line cannot be confirmed.
[2021-01-04 17:47] LABS: Absolute Lymphocytes (CBC) 27.4 K/uL (0.7-4.9); Basophils % 0.2 % (0-1.3); Hematocrit 30.6 % (36.0-45.0); Lymphocytes % 76.5 % (15.3-44.8); RBC Red Blood Cell Count 3.06 M/uL (3.86-4.86)
[2021-01-04 17:48] LABS: Protime INR 1.01
[2021-01-04 18:09] LABS: Albumin 3.2 g/dL (3.4-5.0); Bilirubin Total 0.6 mg/dL (0.2-1.0); Potassium 5.1 mmol/L (3.5-5.1); Protein, Total 7.6 g/dL (6.4-8.2)
--- NOTE | 2021-01-04 18:32 | RAD REPORT ---
EXAM DESCRIPTION: RAD - Chest Single View - 01/04/2021 6:19 pm CLINICAL HISTORY: preoperativechest, femur fracture COMPARISON: September 16 TECHNIQUE: AP portable chest image was obtained 01/04/2021 6:19 pm . FINDINGS: Patient is significantly rotated. No peripheral mass or consolidation. Apical pleural thic kening and scarring changes are present matching comparison. An acute lung parenchymal process is not seen. Acute failure and volume overload are not suspected. Heart and vasculature are normal. No measurable pleural effusion and no pneumothorax. No acute bony abnormality seen. No acute aortic findings suspected. IMPRESSION: No acute cardiopulmonary process. Chest is not significantly different comparison.
[2021-01-04] MEDS ORDERED: NA CHLORIDE 0.9% 1,000 ML ONE (18:37)
[2021-01-04 19:00] LABS: Urine Blood Negative (Negative); Urine Glucose Negative (Negative); Urine Protein 1+ (Negative); Urine Specific Gravity 1.025 (1.005-1.030); Urine pH 7.5 (5.0-7.0)
--- NOTE | 2021-01-04 19:24 | EDPHYS ---
Physician Documentation [facility] Name: Tereza Antonio Age: 80 yrs Sex: Female : 1940 Arrival Date: 01/04/2021 Time: 15:30 Bed 19 Private MD: ED Physician Jung Dolan HPI: 01/04 16:36 This 80 yrs old Female presents to ER via EMS with complaints of Hip Pain. pm1 16:36 The patient or guardian reports pain. that occurred at home, sustained from a fall, pm1 from a standing position, There is no radiation of the patient's discomfort. The complaints affect the right hip. Onset: The symptoms/episode began/occurred this morning. Modifying factors: The symptoms are alleviated by remaining still, the symptoms are aggravated by any movement, weight bearing. Associated signs and symptoms: Loss of consciousness: the patient experienced no loss of consciousness, Pertinent negatives: Headache, head injury, neck pain, LOC. Severity of symptoms: in the emergency department the symptoms are unchanged. The patient has experienced a previous episode, left hip fracture about 6 months ago. 16:36 Patient was standing in her dog jumped on her causing her to fall backwards onto her pm1 right side. Patient denies head injury, headache, or neck pain. Patient presenting with pain to right hip and abrasions to right arm. Historical: - Allergies: 15:38 No Known Allergies; ld1 - Home Meds: 15:38 Mirtazapine Oral [Active]; Triamterene-Hydrochlorothiazid Oral [Active]; ld1 - PMHx: 15:38 Depressive disorder; ld1 - Immunization history:: Adult Immunizations up to date. - Social history:: Smoking status: Patient denies any tobacco usage or history of. ROS: 16:36 Constitutional: Negative for fever, chills, and weight loss, Cardiovascular: Negative pm1 for chest pain, palpitations, and edema, Respiratory: Negative for shortness of breath, cough, wheezing, and pleuritic chest pain. 16:36 Neck: Negative for injury, pain, and swelling, Abdomen/GI: Negative for abdominal pain, nausea, vomiting, diarrhea, and constipation, Back: Negative for injury and pain. 16:36 Neuro: Negative for headache, weakness, numbness, tingling, and seizure. 16:36 MS/extremity: Positive for pain, of the right hip. 16:36 Skin: Positive for abrasion(s), of the right arm. 16:36 All other systems are negative. Exam: 16:36 Constitutional: This is a well developed, well nourished patient who is awake, alert, pm1 and in no acute distress. 16:36 Head/Face: Normocephalic, atraumatic. pm1 16:36 Skin: Warm, dry with normal turgor. Normal color with no rashes, no lesions, and no evidence of cellulitis. MS/ Extremity: Pulses equal, no cyanosis. Neurovascular intact. Nonpainful range of motion with left hip. Patient reports pain with movement of right hip 16:36 Eyes: Exam is negative for acute changes, Extraocular movements: no acute changes, Sclera: no acute changes, icterus, is not appreciated. 16:36 ENT: Mouth: no acute changes, Lips: normal, moist, Oral mucosa: normal, pink and intact, moist. 16:36 Cardiovascular: Exam negative for acute changes, Rate: normal, Rhythm: regular, Pulses: no pulse deficits are appreciated. 16:36 Respiratory: Exam negative for acute changes, respiratory distress, shortness of breath, Breath sounds: are clear throughout. 16:36 Abdomen/GI: Exam negative for acute changes, Inspection: abdomen appears normal, Palpation: abdomen is soft and non-tender, in all quadrants. 16:36 Neuro: Exam negative for acute changes, Orientation: is normal, Mentation: is normal, Motor: is normal, moves all fours. Vital Signs: 15:36 BP 105 / 49; Pulse 91; Resp 19; Temp 98.7(O); Pulse Ox 95% on R/A; Weight 43.09 kg; ld1 Height 4 ft. 11 in. (149.86 cm); Pain 9/10; 17:33 BP 134 / 59; Pulse 84; Pulse Ox 100% on R/A; ap3 18:28 BP 148 / 65; Pulse 86; Resp 18; Pulse Ox 98% on R/A; Pain 6/10; tw5 19:10 BP 148 / 63; Pulse 74; Resp 18; Temp 97.6; Pulse Ox 97% on R/A; Pain 2/10; kc4 21:45 BP 127 / 58; Pulse 79; Resp 18; Temp 97.4(O); Pulse Ox 100% ; Pain 8/10; dc2 15:36 Body Mass Index 19.19 (43.09 kg, 149.86 cm) ld1 MDM: 16:12 Patient medically screened. pm1 17:52 Data reviewed: vital signs. Data interpreted: Pulse oximetry: on room air is 100 %. pm1 Interpretation: normal. Counseling: I had a detailed discussion with the patient and/or guardian regarding: the historical points, exam findings, and any diagnostic results supporting the discharge/admit diagnosis, radiology results, the need for further work-up and treatment in the hospital. 19:13 Physician consultation: Ty Reed MD was called at 19:08, was contacted at 19:08, pm1 regarding consult, patient's condition, Would be willing to accept her at [facility] if we are able to transfer her to that facility. Unable to accept the patient here due to lack of fracture table. 20:58 ED course: Patient accepted without report to [facility]. pm1 01/04 16:49 Order name: SARS-COV-2 RT PCR; Complete Time: 18:48 EDMS 01/04 17:14 Order name: CBC with Diff; Complete Time: 21:36 pm1 01/04 17:14 Order name: CMP; Complete Time: 18:31 pm1 01/04 17:14 Order name: Ptt, Activated; Complete Time: 17:51 pm1 01/04 17:14 Order name: PT-INR; Complete Time: 17:51 pm1 01/04 16:12 Order name: CT Pelvis wo Cont; Complete Time: 17:12 pm1 01/04 18:00 Order name: Urine Microscopic Only; Complete Time: 19:48 pm1 01/04 18:00 Order name: Lactate; Complete Time: 19:55 pm1 01/04 18:00 Order name: Procalcitonin; Complete Time: 20:09 pm1 01/04 18:00 Order name: Blood Culture Adult (2) pm1 01/04 19:00 Order name: Urine Dipstick-Ancillary; Complete Time: 19:02 EDMS 01/04 19:48 Order name: Urine Culture EDMS 01/04 20:59 Order name: Manual Differential; Complete Time: 21:36 EDMS 01/04 16:12 Order name: Femur Left XRAY; Complete Time: 17:51 pm1 01/04 16:12 Order name: IV Saline Lock; Complete Time: 16:30 pm1 01/04 16:12 Order name: Femur Right XRAY; Complete Time: 17:51 pm1 01/04 18:00 Order name: Urine Dipstick-Ancillary (obtain specimen); Complete Time: 19:04 pm1 01/04 18:00 Order name: Chest Single View XRAY; Complete Time: 18:48 pm1 01/04 18:00 Order name: EKG; Complete Time: 18:01 pm1 01/04 18:00 Order name: EKG - Nurse/Tech; Complete Time: 18:46 pm1 01/04 18:00 Order name: NPO; Complete Time: 18:08 pm1 01/04 18:16 Order name: Aguirre; Complete Time: 18:46 pm1 Administered Medications: 16:33 Drug: fentaNYL (PF) 25 mcg Route: IVP; Site: left antecubital; ld1 16:33 Follow up: Response: No adverse reaction ld1 16:33 Drug: Zofran (Ondansetron) 4 mg Route: IVP; Site: left antecubital; ld1 16:33 Follow up: Response: No adverse reaction ld1 18:25 Drug: NS 0.9% 1000 ml Route: IV; Rate: 100 ml/hr; Site: left antecubital; ld1 19:37 Follow up: IV Status: Completed infusion; IV Intake: 1000ml bs2 20:25 Follow up: IV Status: Completed infusion; IV Intake: 1000ml dc2 20:03 Drug: Rocephin (cefTRIAXone) 1 grams Route: IV; Rate: calculated rate; Site: left dc2 antecubital; 20:50 Follow up: Response: No adverse reaction dc2 20:10 Drug: fentaNYL (PF) 25 mcg Route: IVP; Site: left antecubital; bs2 20:45 Follow up: Response: Pain is decreased dc2 Disposition Summary: 01/04/21 19:23 Transfer Ordered Transfer Location: [facility] pm1 Reason: Specialty pm1 Condition: Stable pm1 Problem: new pm1 Symptoms: have improved pm1 Accepting Physician: (01/04/21 22:02) dc2 Diagnosis - Right hip fracture pm1 Forms: - Medication Reconciliation Form pm1 - SBAR form pm1 Addendum: 01/07/2021 08:54 Co-signature as Attending Physician, Jnug Dolan MD I agree with the assessment and r n plan of care. Attestation: The patient's history, exam findings, diagnostics, and a summary of any interventions or procedures was reviewed in detail with Mark Conner NP. Signatures: Dispatcher [employer] EDIN Jung Dolan MD MD rn Marinas, Patrick, NP OUTPATIENT CLERK pm1 Anusha Earl RN RN ld1 Leann Campuzano RN RN bs2 Germania Cameron RN RN dc2 Corrections: (The following items were deleted from the chart) 01/04 15:40 15:38 PMHx: None; ld1 ld1 16:49 16:28 CORONAVIRUS+MR.LAB.BRZ ordered. EDIN EDMS 21:23 16:36 Skin: Warm, dry with normal turgor. Normal color with no rashes, no lesions, and pm1 no evidence of cellulitis. MS/ Extremity: Pulses equal, no cyanosis. Neurovascular intact. Full, normal range of motion. pm1 22:02 19:23 pm1 dc2
--- NOTE | 2021-01-04 19:24 | ER ---
Nurse's Notes [facility] Name: Tereza Antonio Age: 80 yrs Sex: Female : 1940 Arrival Date: 01/04/2021 Time: 15:30 Bed 19 Private MD: Diagnosis: Right hip fracture Presentation: 01/04 15:36 Chief complaint: EMS states: toned out for fall. Pt reports tripping on dog and falling ld1 onto Right Hip. 9/10 pain in right hip. Denies taking blood thinners or LOC. Coronavirus screen: At this time, the client does not indicate any symptoms associated with coronavirus-19. Ebola Screen: No symptoms or risks identified at this time. Initial Sepsis Screen: Does the patient meet any 2 criteria? No. Patient's initial sepsis screen is negative. Does the patient have a suspected source of infection? No. Patient's initial sepsis screen is negative. Risk Assessment: Do you want to hurt yourself or someone else? Patient reports no desire to harm self or others. Onset of symptoms was January 04, 2021. 15:36 Method Of Arrival: EMS: [facility] ld1 15:36 Acuity: PAN 3 ld1 Triage Assessment: 15:38 General: Appears in no apparent distress. comfortable, Behavior is calm, cooperative, ld1 appropriate for age. Pain: Complains of pain in right hip Pain does not radiate. Pain currently is 9 out of 10 on a pain scale. Quality of pain is described as stabbing, Pain began 2 hours ago. Is continuous. EENT: No signs and/or symptoms were reported regarding the EENT system. Neuro: Level of Consciousness is awake, alert, obeys commands, Oriented to person, place, time, situation. Cardiovascular: Capillary refill < 3 seconds Patient's skin is warm and dry. Respiratory: Airway is patent Respiratory effort is even, unlabored, Respiratory pattern is regular, symmetrical. GI: Abdomen is flat, non-distended. : No signs and/or symptoms were reported regarding the genitourinary system. Derm: No signs and/or symptoms reported regarding the dermatologic system. Musculoskeletal: Reports pain in right hip. Historical: - Allergies: 15:38 No Known Allergies; ld1 - Home Meds: 15:38 Mirtazapine Oral [Active]; Triamterene-Hydrochlorothiazid Oral [Active]; ld1 - PMHx: 15:38 Depressive disorder; ld1 - Immunization history:: Adult Immunizations up to date. - Social history:: Smoking status: Patient denies any tobacco usage or history of. Screenin:42 Abuse screen: Denies threats or abuse. Denies injuries from another. Nutritional ld1 screening: No deficits noted. Tuberculosis screening: No symptoms or risk factors identified. 15:42 Fall Risk Fall in past 12 months (25 points). Ambulatory Aid- Crutches/Cane/Walker (15 ld1 pts). Gait- Weak (10 pts.). Mental Status- Oriented to own ability (0 pts). Total Bautista Fall Scale indicates High Risk Score (45 or more points). Fall prevention measures have been instituted. Side Rails Up X 2 Placed Close to Nursing Station Frequent Obs/Assessments Occuring. Assessment: 15:42 Reassessment: See triage assessment. ld1 18:08 Reassessment:. ap3 18:28 Pain: Complains of pain in right hip Pain currently is 6 out of 10 on a pain scale. tw5 21:45 Reassessment: Update given to Juan Carlos Antonio ( via telephone ) voices understanding. dc2 Vital Signs: 15:36 BP 105 / 49; Pulse 91; Resp 19; Temp 98.7(O); Pulse Ox 95% on R/A; Weight 43.09 kg; ld1 Height 4 ft. 11 in. (149.86 cm); Pain 9/10; 17:33 BP 134 / 59; Pulse 84; Pulse Ox 100% on R/A; ap3 18:28 BP 148 / 65; Pulse 86; Resp 18; Pulse Ox 98% on R/A; Pain 6/10; tw5 19:10 BP 148 / 63; Pulse 74; Resp 18; Temp 97.6; Pulse Ox 97% on R/A; Pain 2/10; kc4 21:45 BP 127 / 58; Pulse 79; Resp 18; Temp 97.4(O); Pulse Ox 100% ; Pain 8/10; dc2 15:36 Body Mass Index 19.19 (43.09 kg, 149.86 cm) ld1 ED Course: 15:30 Patient arrived in ED. tr6 15:38 Triage completed. ld1 15:38 Arm band placed on left wrist. ld1 15:42 Mark Conner NP is PHCP. pm1 15:42 Jung Dolan MD is Attending Physician. pm1 15:42 Patient has correct armband on for positive identification. Placed in gown. Bed in low ld1 position. Call light in reach. Side rails up X2. Pulse ox on. NIBP on. Door closed. Noise minimized. Warm blanket given. 15:42 No provider procedures requiring assistance completed. ld1 16:31 Inserted saline lock: 20 gauge in left antecubital area, using aseptic technique. Blood dh4 collected. 16:40 CT Pelvis wo Cont In Process Unspecified. EDMS 17:01 Femur Left XRAY In Process Unspecified. EDMS 17:01 Femur Right XRAY In Process Unspecified. EDMS 17:24 Pooja Kern, RN is Primary Nurse. ap3 18:19 Chest Single View XRAY In Process Unspecified. EDMS 19:03 Aguirre cath inserted, using sterile technique, 16 Fr., by nc, balloon inflated, to tw5 gravity drainage, clamped. urine specimen collected. returned clear yellow urine. Patient tolerated well. 19:21 Primary Nurse role handed off by Pooja Kern, RN mw2 20:14 initiated a transfer with Clarisa from [facility] Transfer Center. mw2 20:58 administrative approval given by Clarisa Britton/ patient has been accepted to [address] to the ER/ Dr. Mancia accepted the patient in transfer/ report to be called to [phone]. 21:53 IV Flushed Converted IV to saline lock on left antecubital area dc2 Administered Medications: 16:33 Drug: fentaNYL (PF) 25 mcg Route: IVP; Site: left antecubital; ld1 16:33 Follow up: Response: No adverse reaction ld1 16:33 Drug: Zofran (Ondansetron) 4 mg Route: IVP; Site: left antecubital; ld1 16:33 Follow up: Response: No adverse reaction ld1 18:25 Drug: NS 0.9% 1000 ml Route: IV; Rate: 100 ml/hr; Site: left antecubital; ld1 19:37 Follow up: IV Status: Completed infusion; IV Intake: 1000ml bs2 20:25 Follow up: IV Status: Completed infusion; IV Intake: 1000ml dc2 20:03 Drug: Rocephin (cefTRIAXone) 1 grams Route: IV; Rate: calculated rate; Site: left dc2 antecubital; 20:50 Follow up: Response: No adverse reaction dc2 20:10 Drug: fentaNYL (PF) 25 mcg Route: IVP; Site: left antecubital; bs2 20:45 Follow up: Response: Pain is decreased dc2 Intake: 19:37 IV: 1000ml; Total: 1000ml. bs2 20:25 IV: 1000ml; Total: 2000ml. dc2 Outcome: 19:23 ER care complete, transfer ordered by MD. pm1 21:52 Transferred by ground EMS to [facility], Transfer form dc2 completed. 21:52 Condition: stable 22:01 Transferred by ground EMS by private ambulance to [facility], dc2 Note: Report called to Mindy at [facility]. Phone number for son also passed on in report. 22:02 Patient left the ED. dc2 Signatures: Dispatcher [employer] EDMS Mark Conner NP SIGN BUILDER pm1 Pooja Kern RN RN ap3 Arlene Lyon 2 Vince Otto 4 Anusha Earl RN RN ld1 Olga Gomez RN RN tr6 Leann Campuzano RN RN bs2 Rachelle Morales kc4 Germania Cameron RN RN dc2 Olga Moody tw5 Corrections: (The following items were deleted from the chart) 15:40 15:38 PMHx: None; ld1 ld1 15:43 15:42 Fall Risk None identified. ld1 ld1 16:49 16:33 CORONAVIRUS+ drawn and sent. 1 EDGA
[2021-01-04 19:47] LABS: Urine Bacteria <20 /HPF (<20); Urine Mucus 1+ /HPF (NONE SEEN); Urine RBC <5 /HPF (NONE SEEN)
[2021-01-04] MEDS ORDERED: CEFTRIAXONE 1000 MG/VIAL ONE (20:27)
[2021-01-04 20:59] LABS: Blood Morphology Comment NOT SEEN (NOT SEEN); Platelet Estimate ADEQ; Smudge Cells 4+
[2021-01-04 22:17] VITALS: BP 127/58; TEMP 97.4; O2SAT 100
--- NOTE | 2021-01-05 16:44 | EKG ---
Test Date: 2021-01-04 Test Time: 18:51:33 Schedule Hanger: MARGAUX MEASUREMENT RESULTS: Intervals: Rate: 85 CO: 178 QRSD: 68 QT: 376 QTc: 447 [place]: P: 84 CO: 178 QRS: 41 T: 53 INTERPRETIVE STATEMENTS: Normal sinus rhythm Cannot rule out Anterior infarct, age undetermined Abnormal ECG Compared to ECG 03/02/2020 18:25:23 Myocardial infarct finding now present Electronically Signed On 01-05-21 16:42:48 CDT by Ede Zuniga
== END 2021-01-04 22:02 | disposition short-term general hospital (02) ==
LOC: ER 15:23
DX: S72.111A Displaced fracture of greater trochanter of right femur, initial encounter for closed fracture (principal); W18.30XA Fall on same level, unspecified, initial encounter; Z20.822 Contact with and (suspected) exposure to COVID-19; F32.A Depression, unspecified
CPT/HCPCS: 96361; 93005; 87040 ×2; 87088; 85025; 87086; 36415; 85610; 83605; 85730; 80053; 84145; 72192; 71045; 73552 ×2; 51702; 96375; 96374; 99285; U0003; J3010 ×2; J7030; J2405; 81003; 81015

== ENCOUNTER 2021-12-17 22:05 | Emergency (ER) | payer OTHER ==
[2021-12-17 22:54] LABS: Absolute Lymphocytes (CBC) 11.7 K/uL (0.7-4.9); Hematocrit 30.5 % (36.0-45.0); Lymphocytes % 86.1 % (15.3-44.8); MCV 104.4 fL (80-100); MPV 8.1 fL (7.6-11.3); RBC Red Blood Cell Count 2.92 M/uL (3.86-4.86)
[2021-12-17 23:18] LABS: Protime INR 1.26
[2021-12-17] MEDS ORDERED: NA CHLORIDE 0.9% 500 ML ONE (23:18)
--- NOTE | 2021-12-17 23:26 | RAD REPORT ---
EXAM DESCRIPTION: N[place] Single View12/17/2021 11:03 pm CLINICAL HISTORY: Cough COMPARISON: May 2021 FINDINGS: Opacification of the mid and lower right lung Left lung appears clear. Heart is probably normal size IMPRESSION: Opacification of the mid and lower right lung probably pneumonia. This should be followe d until it is clear to help exclude a post obstructive process/underlying mass
[2021-12-17 23:30] LABS: Albumin 1.4 g/dL (3.4-5.0); Bilirubin Direct 2.4 mg/dL (0-0.2); Bilirubin Total 2.8 mg/dL (0.2-1.0); Magnesium 1.9 mg/dL (1.8-2.4); Potassium 3.8 mmol/L (3.5-5.1); Protein, Total 5.9 g/dL (6.4-8.2)
--- NOTE | 2021-12-18 01:04 | ER ---
Nurse's Notes [facility] Name: Tereza Antonio Age: 81 yrs Sex: Female : 1940 Arrival Date: 12/17/2021 Time: 22:06 Bed 3 Private MD: Diagnosis: Hypotension, unspecified;Tachycardia, unspecified;Pneumonia due to other specified bacteria;Severe sepsis with septic shock;Hypoxemia;Anemia in chronic kidney disease;Non ST elevation [place];Unspecified kidney failure;Elevated white blood cell count Presentation: 12/17 22:07 Chief complaint: EMS states: "Family called us saying she has been unresponsive for tw5 about 30 min now. They stated she is usually AxO x 3. Her initial bgl was 28, we gave her a 250 ml of D10. We were using a BVM and her oxygen level was 90%. She is pretty stiff, and the family stated she is usually leans to the right side like this. Her skin tears really easily". Coronavirus screen: Vaccine status: unknown. Ebola Screen: Unable to complete the Ebola screening because:. Initial Sepsis Screen: Does the patient meet any 2 criteria? RR > 20 per min. Altered Mental Status. HR > 90 bpm. Does the patient have a suspected source of infection? No. Patient's initial sepsis screen is negative. Risk Assessment: Do you want to hurt yourself or someone else? Unable to obtain. Onset of symptoms was December 17, 2021 at 09:10. 22:07 Method Of Arrival: [facility] tw5 22:07 Acuity: PAN 2 tw5 23:19 Note pt son in to speak with Dr Escobar per son patient is on hospice at home and requests DNR and comfort measures only. 12/18 02:04 Note pt family requesting patient be discharged per her wishes out of hospital DNR kl obtained pt son agreeable to [facility] transport to home. Historical: - Allergies: 02:11 No Known Allergies; kl - Home Meds: 02:10 mirtazapine 7.5 mg Oral tab once daily [Active]; - PMHx: 12/17 22:11 depressive disorder; tw5 12/18 02:10 cancer; Hospice care; kl - Immunization history:: Adult Immunizations unknown. - Social history:: Smoking status: unknown. - Family history:: not pertinent. Screenin/17 23:21 Abuse screen: Denies threats or abuse. Nutritional screening: pt on hospice poor kl appetite x 1 week. Tuberculosis screening: No symptoms or risk factors identified. Fall Risk None identified. Assessment: 22:30 General: Appears ill, malnourished, cachectic, Behavior is unresponsive. Pain: Unable kl to use pain scale. Does not appear to understand pain scale. 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 Cardiovascular: Heart tones S1 S2 Rhythm is sinus tachycardia. Respiratory: Airway is patent Trachea midline Respiratory effort is labored, shallow, Respiratory pattern is tachypnea Breath sounds are diminished bilaterally. GI: No deficits noted. : No deficits noted. EENT: No deficits noted. Derm: Bruising that is dark purple, on bilateral upper extremities left knee. 12/18 01:00 Reassessment: Patient appears in no apparent distress at this time. Patient and/or kl family updated on plan of care and expected duration. Pain level reassessed. Vital Signs: 12/17 22:00 BP 111 / 50; Pulse 114; Resp 30; Temp 98.4(TE); Pulse Ox 98% ; kl 22:07 BP 111 / 51; Pulse 113; Resp 34; Pulse Ox 100% on 15% Non-rebreather mask; Weight 29.03 tw5 kg; 23:20 BP 94 / 63; Pulse 105; Resp 33; Pulse Ox 82% on BiPAP; kl 18 00:58 BP 118 / 41; Pulse 110; Resp 29; Pulse Ox 81% ; 02:06 BP 98 / 40; Pulse 95; Resp 2; Pulse Ox 78% on Non-rebreather mask; ED Course: 12/17 22:06 Patient arrived in ED. la1 22:11 Triage completed. tw5 22:23 Miguelito Escobar MD is Attending Physician. [facility] 22:47 Inserted saline lock: 22 gauge in right upper arm, using aseptic technique. Blood oe collected. 22:48 Blood Culture Adult (2) Sent. kl 22:49 Lactate Sent. kl 22:49 Urine Microscopic Only Sent. kl 22:49 Lipase Sent. kl 22:49 XRAY Chest (1 view) Sent. kl 22:49 Basic Metabolic Panel Sent. kl 22:49 CBC with Diff Sent. kl 22:49 LFT's Sent. kl 22:49 Magnesium Sent. kl 22:49 NT PRO-BNP Sent. kl 22:49 PT-INR Sent. kl 22:49 Troponin HS Sent. kl 23:05 XRAY Chest (1 view) In Process Unspecified. EDMS 23:54 Bryant Denise, RN is Primary Nurse. as6 12/18 02:09 No provider procedures requiring assistance completed. IV discontinued, intact, kl bleeding controlled, No redness/swelling at site. Pressure dressing applied. 02:09 Arm band placed on left wrist. kl 02:10 Patient has correct armband on for positive identification. kl 06:38 Notified ED physician of a critical lab result(s). gram positive coxi in chains. tw5 Administered Medications: 12/17 23:13 Drug: NS 0.9% 500 ml Route: IV; Rate: bolus; Site: left forearm; kl Medication: 12/18 02:10 VIS not applicable for this client. kl Outcome: 01:03 Discharge ordered by . maggie 02:07 Patient left the ED. kl 02:09 Discharged to home via ambulance. kl 02:09 Condition: unchanged 02:09 Discharge instructions given to family, Instructed on discharge instructions, follow up and referral plans. Demonstrated understanding of instructions, follow-up care. Signatures: Dispatcher [employer] EDMS Liliana Reece, Miguelito Jeffries RN, MD MD cha Attema, Lee, HEALTHCARE TRANSLATOR-C HEALTHCARE TRANSLATOR-Cla1 Tushar Glover Tiffany tw5 Bryant Denise, RN RN as6
--- NOTE | 2021-12-18 01:04 | EDPHYS ---
Physician Documentation [facility] Name: Tereza Antonio Age: 81 yrs Sex: Female : 1940 Arrival Date: 12/17/2021 Time: 22:06 Bed 3 Private MD: ED Physician Miguelito Escobar HPI: 12/17 23:41 This 81 yrs old Female presents to ER via EMS with complaints of maggie unresponsive, hypoxia. 23:41 The patient has shortness of breath at rest. Onset: The symptoms/episode began/occurred maggie just prior to arrival. Duration: The symptoms are continuous, and are steadily getting worse. The patient's shortness of breath is aggravated by nothing, is alleviated by nothing. hospice pt. The patient presents with confusion, decreased mental status, decreased responsiveness. Onset: The symptoms/episode began/occurred today. Possible causes: CVA or TIA, head injury, a fall, low blood sugar. Associated signs and symptoms: Pertinent positives: non-productive cough. Severity of symptoms: At their worst the symptoms were severe in the emergency department the symptoms have improved mildly. Historical: - Allergies: 12/18 02:11 No Known Allergies; kl - Home Meds: 02:10 mirtazapine 7.5 mg Oral tab once daily [Active]; kl - PMHx: 12/17 22:11 depressive disorder; tw5 12/18 02:10 cancer; Hospice care; kl - Immunization history:: Adult Immunizations unknown. - Social history:: Smoking status: unknown. - Family history:: not pertinent. ROS: 12/17 23:41 Cardiovascular: Positive for palpitations. [facility] Respiratory: Positive for cough, shortness of breath, at rest. Neuro: Positive for altered mental status, weakness. Exam: 23:41 Cardiovascular: Rate: tachycardic, actual rate is 123 bpm, Rhythm: regular, Pulses: [facility] Pulses are 2+ in bilateral radial, brachial, femoral, popliteal, posterior tibial and and dorsalis pedis arteries.. Heart sounds: murmur, systolic, grade 2 over 6, Edema: is not appreciated, JVD: is not appreciated. 23:41 Respiratory: moderate respiratory distress is noted, Respirations: labored breathing, that is mild, that is moderate, Breath sounds: bronchial sounds, that are moderate, are scattered, decreased breath sounds, that are moderate, are heard in the right posterior middle lobe and right posterior lower lobe, Respiratory rate: 33 Vital Signs: 22:00 BP 111 / 50; Pulse 114; Resp 30; Temp 98.4(TE); Pulse Ox 98% ; kl 22:07 BP 111 / 51; Pulse 113; Resp 34; Pulse Ox 100% on 15% Non-rebreather mask; Weight 29.03 tw5 kg; 23:20 BP 94 / 63; Pulse 105; Resp 33; Pulse Ox 82% on BiPAP; kl 12/18 00:58 BP 118 / 41; Pulse 110; Resp 29; Pulse Ox 81% ; kl 02:06 BP 98 / 40; Pulse 95; Resp 2; Pulse Ox 78% on Non-rebreather mask; kl MDM: 12/17 22:23 Patient medically screened. [facility] 12/18 01:05 Differential diagnosis: Anemia Bronchitis CHF exacerbation, Chronic Obstructive maggie Pulmonary Disease Myocardial Infarction pulmonary edema, Pulmonary Embolism reactive airway disease, Sepsis Unstable Angina. Antibiotic administration: Not indicated. Differential Diagnosis altered mental status, sepsis. Differential Diagnosis: electrolyte abnormality, hypoglycemia, intracranial bleed, pneumonia, sepsis, UTI, volume depletion. The patient's Wells Deep Vein Thrombosis Score was calculated as follows: Heart Rate >100 BPM (1.5 Pts) Malignancy Total Score: 3-6 Pts - Mod Risk. The patient's pulmonary embolism risk score was calculated as follows: the patients heart rate is greater than 100 beats per minute (1.5 Pts) malignancy Total Score: 3-6 points. This patient was found to be at moderate risk for a pulmonary embolism by using the Well's assessment criteria. Immunization status: Pneumococcal vaccine: Influenza vaccine: Data reviewed: vital signs, nurses notes, EMS record, lab test result(s), EKG, radiologic studies, plain films. Data interpreted: clinical research monitor: rate is 110 beats/min, rhythm is regular, Pulse oximetry: on room air is 81 %. Test interpretation: by ED physician or midlevel provider: ECG, plain radiologic studies. Counseling: I had a detailed discussion with the patient and/or guardian regarding: the historical points, exam findings, and any diagnostic results supporting the discharge/admit diagnosis, lab results, radiology results, the need for outpatient follow up. 12/17 22:22 Order name: Glucose, Ancillary Testing; Complete Time: 22:23 EDMS 12/17 22:33 Order name: Basic Metabolic Panel; Complete Time: 01:04 [facility] 12/17 22:33 Order name: CBC with Diff; Complete Time: 23:17 [facility] 12/17 22:33 Order name: LFT's; Complete Time: 01:04 [facility] 12/17 22:33 Order name: Magnesium; Complete Time: 01:04 [facility] 12/17 22:33 Order name: NT PRO-BNP; Complete Time: 01:04 [facility] 12/17 22:33 Order name: PT-INR; Complete Time: 23:31 [facility] 12/17 22:33 Order name: Troponin HS; Complete Time: 01:04 [facility] 12/17 22:33 Order name: Lipase; Complete Time: 01:04 [facility] 12/17 22:33 Order name: Blood Culture Adult (2) [facility] 12/17 22:33 Order name: Lactate; Complete Time: 01:04 [facility] 12/17 22:33 Order name: XRAY Chest (1 view); Complete Time: 23:31 [facility] 12/17 22:33 Order name: EKG; Complete Time: 22:35 [facility] 12/17 22:33 Order name: Cardiac monitoring; Complete Time: 22:49 [facility] 12/17 22:33 Order name: EKG - Nurse/Tech; Complete Time: 22:49 [facility] 12/17 22:33 Order name: IV Saline Lock; Complete Time: 22:49 [facility] 12/17 22:33 Order name: Labs collected and sent; Complete Time: 22:49 [facility] 12/17 22:33 Order name: O2 Per Protocol; Complete Time: 22:49 [facility] 12/17 22:33 Order name: O2 Sat Monitoring; Complete Time: 22:49 [facility] 12/17 22:33 Order name: Urine Dipstick-Ancillary (obtain specimen) maggie Administered Medications: 12/17 23:13 Drug: NS 0.9% 500 ml Route: IV; Rate: bolus; Site: left forearm; kl Disposition Summary: 12/18/21 01:03 Discharge Ordered Location: Home maggie Problem: new maggie Symptoms: have improved maggie Condition: Critical maggie Diagnosis - Hypotension, unspecified maggie - Tachycardia, unspecified maggie - Pneumonia due to other specified bacteria maggie - Severe sepsis with septic shock maggie - Hypoxemia maggie - Anemia in chronic kidney disease maggie - Non ST elevation [place] maggie - Unspecified kidney failure maggie - Elevated white blood cell count maggie Followup: maggie - With: Private Physician - When: 2 - 3 days - Reason: Recheck today's complaints, Continuance of care, Re-evaluation by your physician Discharge Instructions: - Discharge Summary Sheet maggie - Anemia maggie - Hypotension maggie - Sepsis, Diagnosis, Adult maggie - Hypoxemia maggie - End-Stage Kidney Disease maggie - Hypotension, [id number] maggie - Sepsis, Self Care, Adult maggie Forms: - Medication Reconciliation Form maggie - Thank You Letter maggie - Antibiotic Education maggie - Prescription Opioid Use maggie Signatures: Dispatcher [employer] Liliana Crowley RN RN kl Anderson, Corey, MD MD cha Attema, Lee, SPECIAL NEEDS NANNY-C SPECIAL NEEDS NANNY-Cla1 Olga Moody tw5
[2021-12-19 15:25] VITALS: BP 118/41; O2SAT 81
== END 2021-12-18 02:07 | disposition home or self-care (01) ==
LOC: ER 22:05
DX: J15.8 Pneumonia due to other specified bacteria (principal); R65.21 Severe sepsis with septic shock; N17.9 Acute kidney failure, unspecified; R09.02 Hypoxemia; I21.4 Non-ST elevation (NSTEMI) myocardial infarction; D63.1 Anemia in chronic kidney disease; I95.9 Hypotension, unspecified; R00.0 Tachycardia, unspecified; D72.829 Elevated white blood cell count, unspecified
CPT/HCPCS: 87040 ×2; 85025; 80048; 36415; 83735; 87205 ×4; 85610; 82947; 80076; 83605; 84484; 83690; 83880; 71045; 99284; J7040; 87077; 87186